=== PATIENT | female | born 1955 | race Caucasian/White ===

== ENCOUNTER → 2018-08-21 12:22 | Outpatient (CLI) | payer OTHER, MEDICAID, SELFPAY ==
--- NOTE | 2018-08-21 | DI.MRI.S_ITS ---
PROCEDURE: MR CERVICAL SPINE WO CON INDICATIONS: CERVICAL SPINE PAIN TECHNIQUE: Noncontrast sagittal T1 spin echo and T2 fast spin echo, sagittal STIR, foraminal oblique sagittal T2 fast spin echo, and axial gradient echo or T2 fast spin echo through the cervical spine. COMPARISON: [facility] [place], CR, XR CERVICAL SPINE WITH OBLIQUES, 07/23/2018, 14:20. FINDINGS: Image quality: Suboptimal due to hardware artifact from interbody cage grafts at C3-C4, C4-C5 with anterior plate and screw retaining hardware. Alignment and Curvature: Straightening of the normal lordotic curvature. Bone Marrow: Marrow demonstrates normal overall signal. Spinal Cord: Visualized spinal cord has normal size and signal. No cerebellar tonsillar herniation. Paraspinous Soft Tissues: No paravertebral masses. Prevertebral soft tissues are normal in thickness. C2-C3: Bilateral uncovertebral arthropathy and posterior intervening disc osteophyte complex, and bilateral facet disease. No central canal narrowing. Mild right foraminal stenosis. No left foraminal stenosis. C3-C4: Mild residual central canal narrowing. Mild right foraminal stenosis. Severe left foraminal stenosis with nerve root compression. C4-C5: Moderate residual central canal narrowing. Mild right foraminal stenosis. Severe left foraminal narrowing with nerve root compression C5-C6: Bilateral uncovertebral arthropathy and posterior intervening disc osteophyte complex, and bilateral facet disease. Mild central canal narrowing. Mild right foraminal stenosis. Severe left foraminal stenosis with nerve root compression C6-C7: Bilateral uncovertebral arthropathy and posterior intervening disc osteophyte complex, and bilateral facet arthropathy. Mild central canal narrowing. Moderate right foraminal stenosis with nerve root compression. Severe left foraminal stenosis with nerve root compression. C7-T1: Bilateral facet arthropathy, left greater than right. Mild left foraminal narrowing otherwise normal appearance. IMPRESSION: Multilevel cervical spondylosis and facet arthropathy with postsurgical changes as above from C3-C5. Numerous bilateral foraminal stenoses as detailed above by spinal level. Straightening of the normal lordotic curvature. Dictated by: Ruperto Rai M.D. on 08/21/2018 at 13:50 Approved by: Ruperto Rai M.D. on 08/21/2018 at 14:00
== END ==
PROVIDERS: PCP Physician Assistant; Visit Provider Physical Medicine & Rehabilitation
DX: M54.2 Cervicalgia (principal); M47.812 Spondylosis without myelopathy or radiculopathy, cervical region; M48.02 Spinal stenosis, cervical region; Z98.1 Arthrodesis status
CPT/HCPCS: 72141

== ENCOUNTER → 2018-12-18 12:41 | Outpatient (CLI) | payer OTHER, MEDICAID, SELFPAY ==
--- NOTE | 2018-12-18 | DI.CT.S_ITS ---
PROCEDURE: CT CERVICAL SPINE WO CON INDICATIONS: SPINAL STENOSIS, CERVICAL REGION TECHNIQUE: Noncontrast 3 mm thick sections acquired from the skull base to the T4 level. Sagittal and coronal reformats were then constructed. For radiation dose reduction, the following was used: automated exposure control, adjustment of mA and/or kV according to patient size. COMPARISON: [facility], MR, MR CERVICAL SPINE WO CON, 08/21/2018, 12:42. [facility] [place], CR, XR CERVICAL SPINE WITH OBLIQUES, 07/23/2018, 14:20. FINDINGS: Image quality: Excellent. Bones: No fractures or dislocations. There is normal alignment of the visualized vertebral bodies. There is straightening of normal cervical spine curvature. Visualized superior ribs are intact. Postsurgical changes compatible with C3-C4 and C4-C5 ACDF noted. Lucency persists in the C3-C4 intervertebral space. Orthopedic hardware is intact. No lucency is identified at the bone-hardware interface. Mild C4-C5 central canal narrowing. Severe C5-C6 and C6-C7 degenerative changes are noted. Mild C2-C3 degenerative disc changes. Mild C2-C3, C3-C4, C4-C5, C5-C6 and C6-C7 facet arthropathy. Severe left C3-C4, C4-C5, C5-C6 and C6-C7 neural foraminal narrowing. There is compression of the exiting left C4, C5, C6 and C7 nerve root secondary to neural foraminal narrowing. Soft tissues: Prevertebral soft tissues are normal in thickness. No paravertebral hematomas. No apical pneumothoraces. IMPRESSION: 1. Status post C3-C4 ACDF. 2. Multilevel degenerative disc disease 3. Multilevel facet arthropathy 4. Severe left C3-C4, C4-C5, C5-C6 and C6-C7 neural foraminal narrowing. 5. Mild C4-C5 central canal narrowing. 6. Compression of the exiting left C4, C5, C6 and C7 nerve roots secondary to neural foraminal narrowing. Dictated by: Sinai Lebron MD, PhD on 12/18/2018 at 14:31 Approved by: Sinai Lebron MD, PhD on 12/18/2018 at 15:09
== END ==
PROVIDERS: PCP Physician Assistant; Referring Provider Orthopaedic Surgery
DX: M48.02 Spinal stenosis, cervical region (principal); M47.812 Spondylosis without myelopathy or radiculopathy, cervical region; Z98.1 Arthrodesis status
CPT/HCPCS: 72125

== ENCOUNTER 2021-03-14 13:00 | Outpatient (RCR) | payer MEDICARE, SELFPAY ==
--- NOTE | 2021-02-21 13:48 | PT.OIE ---
Current Diagnoses Benign paroxysmal vertigo, unspecified ear (02/21/21) Visit Care Team Role Provider Type Adelina Nicole PA-C Primary Care Provider Non-Staff Specialty: Medical Address: [address], [place], [address] Email: Adelina Campbell PA-C Family Provider Non-Staff Specialty: Medical Address: [address] [place] [address], [id number] Email: Sourav Ruby MD Attending Provider Physician Referring Provider Specialty: Ear, Nose, Throat Address: [address] [place] [address], [id number] Email: [email or web address] Physical Therapy Initial Evaluation PT-OP-A Visit Information Start: 02/15/21 16:25 Freq: Status: Active Protocol: Document 02/21/21 12:18 MB (Rec: 02/21/21 12:44 MB [id number]) Out-Patient Physical Therapy Visit Information Visit Information Visit Type Initial Evaluation Visit Note [employer] Medicare Visit Start Time 12:18 Visit Stop Time 13:18 Total Visit Minutes 60 Visit Number 1 Evaluation Information Evaluation Date 02/21/21 PT-OP-B Current Condition Start: 02/15/21 16:25 Freq: Status: Active Protocol: Document 02/21/21 12:18 MB (Rec: 02/21/21 12:44 MB [id number]) Current Condition History of Current Condition Onset Date 4 years ago Current Complaints Dizziness with lying down and rolling over History of Current Condition Pt reports dizziness that started 4 years ago. It started with walking when she was walking up the hill to feed the mules. She would start to list off to the right . She would stop and close her eyes and get her bearings. It would get better. The walking up the hill dizziness is not happening right now. She is getting dizzy when she lies down in the bed. She sometimes feels dizzy when she goes to the right. Pt states that her sister said that it could be MS. She read that MS is prevalant in [place]. Pt has a history of DM and apnea. She is waiting for a replacement part for her CPAP machine. She is sleeping better without her CPAP. Pt had cervical fusion C1-4. Per Dr. Ruby note, she is a candidate for hearing aides. Pt had one fall in the past year when she stepped backwards into a hole and ruptured her achilles tendon. She had been walking a lot for exercise before she ruptured her achilles. She was put in a boot and then had PT in [place] that hurt her other leg . She stopped the therapy. Pt reports: numbness and tingling in her hands from her carpal tunnel and trigger fingers, vision changes when her dizziness happens (she calls this [employer] vision) , hearing change, reflux with eating rice, concussions when she was little, weakness all over intermittently when she is up, sinus/allergy issues, roaring/ringing in the ears intermittently, chiropractor treatment with last visit in December 2020 with adjustment of LB, TMD with pain in both sides and occ popping right side, occ headache. Pt denies: ear pressure, performance of sit-ups, anemia , recent overhead lifting, B12 deficiency, eye pressure changes, neck pain. Prior Treatments and Tests PT at [facility] after achilles rupture and pt reports PT hurt her other ankle and calf and especially when walking with band Future Testing and Treatments Planned Pt saw ENT Treatment Goals Patient/Caregiver Goals To stop the dizziness PT-OP-C Subjective Start: 02/15/21 16:25 Freq: Status: Active Protocol: Document 02/21/21 12:18 MB (Rec: 02/21/21 12:44 MB [id number]) OP-PT Subjective Patient Comments Patient Comments See history of current condition Patient Questionnaires Dizziness Handicap Inventory DHI Score 18 DHI Functional Impairment 1 to 19% Impaired (Score 1-19) PT-OP-D Balance Start: 02/15/21 16:25 Freq: Status: Active Protocol: Document 02/21/21 12:18 MB (Rec: 02/21/21 13:48 MB [id number]) OP-PT Balance Assessment Sitting Balance Static Sitting Balance Ability Fair Dynamic Sitting Balance Ability Fair Standing Balance Static Standing Balance Ability Fair Dynamic Standing Balance Ability Poor Standing Balance Comments Min A for standing balance once up with orthostatic testing and after treating BPPV and pt with unsteadiness. Similarly, pt initially dizzy with sitting up after BPPV treatment and requiring assist for balance. Balance Tests Other Other Balance Tests Performed Pt cannot tolerate formal balance testing today d/t dizziness. Mcguire Fall Scale Copyright Permission PT-OP-G Mobility & Gait Start: 02/15/21 16:25 Freq: Status: Active Protocol: Document 02/21/21 12:18 MB (Rec: 02/21/21 13:48 MB [id number]) OP Gait Assessment Comments Gait Comments Superv for gait today with wide SEAN and short steps. PT-OP-J Posture/Palpation/Skin Start: 02/15/21 16:25 Freq: Status: Active Protocol: Document 02/21/21 12:18 MB (Rec: 02/21/21 13:48 MB [id number]) Posture Evaluation Comments Posture Comments Forward head, rounded shoulders, increased body mass PT-OP-K Range of Motion Start: 02/15/21 16:25 Freq: Status: Active Protocol: Document 02/21/21 12:18 MB (Rec: 02/21/21 13:48 MB [id number]) Cervical Spine Range of Motion Cervical Spine Active Testing Position Sitting Comments Cervical ROM is limited all directions s/p C1-4 fusion and pt tends to move shoulders when looking to the side PT-OP-O Vestibular Start: 02/15/21 16:25 Freq: Status: Active Protocol: Document 02/21/21 12:18 MB (Rec: 02/21/21 13:48 MB [id number]) Vestibular Assessment Positional Testing [place]-Hallpike Positive Right,Upbeating,< 60 Seconds Comments Vestibular Comments Negative orthostatic hypotension with BP and HR in left UE: [id number], 62; standing 150/79, 69; standing 1' 146/72, 68 PT-OP-Q Treatments Start: 02/15/21 16:25 Freq: Status: Active Protocol: Document 02/21/21 12:18 MB (Rec: 02/21/21 13:36 MB [id number]) Self-Care/Home Management Treatment Education Patient Education Fall Risk,Posture,Safety Other Education Provided handout about BPPV, ed in gentle cervical rotation and head nods, increasing non -caffeinated fluid intake, use of towel roll for cervical support when sleeping, benefits of OPPT for balance and vestibular training Canalithic Repositioning BPPV Treatment Other Comments Left [place]-Hallpike negative for dizziness and nystagmus and right Nyla-Hallpike positive for dizziness and nystagmus and pt treated x2 with modified Alicja--second time to ensure clearing and BPPV cleared PT-OP-T Assessment and Plan Start: 02/15/21 16:25 Freq: Status: Active Protocol: Document 02/21/21 12:18 MB (Rec: 02/21/21 13:48 MB [id number]) Physical Therapy Assessment Rehab Potential Rehabilitation Potential Good Evaluation Complexity Number of Personal Factors/Comorbidities 1-2 Number of Body Systems Impaired 1-2 Clinical Presentation at Evaluation Evolving Impairments Impairments Activity Tolerance,Balance, Functional Mobility,Gait, Posture,ROM,Sensation,Soft Tissue Mobility,Vestibular Other Impairments Personal factors include pt states she tends to do too much and does not take much time for self-care. Body systems affected include musculoskeletal, vestibular. Her BP is also high today. Her clinical presentation is evolving. Other Concerns Fall Risk Yes Goals 4 Half-Way Goal (LTG) Pt will perform progressive HEP with I including postural, self-massage, thoracic mobility, VOR and balance exercises to improve balance and safety by 04/09/21. LTG Duration 7 weeks 3 Half-Way Goal (LTG) Pt will gait train at least 1400 feet without AD to improve community ambulation and ability to return to walking for exercise by . LTG Duration 7 weeks 2 Paint Booth Operator Goal (LTG) Pt will perform WNLs on FGA to decrease fall risk by 04/09/21 . LTG Duration 7 weeks 1 Paint Booth Operator Goal (LTG) Pt will report no dizziness with lying in bed and rolling over to improve sleep and safety with bed mobility by . LTG Duration 7 weeks Assessment Summary Assessment Pt is a 65 y/o female presenting with chronic postural changes and cervical limitations s/p cervical fusion, increased body mass and tight thoracic spine and positive today for right posterior canalithiasis BPPV. BPPV was treated and resolved when re-checked. She will benefit from ongoing PT to improve posture, check and treat VOR and to work on balance. She had an achilles rupture last year that also affects her gait and balance and PT will address balance to improve I and to decrease fall risk. High co-pay is a barrier to PT. Physical Therapy Plan Frequency and Duration Frequency of Treatment 1-2x/wk Duration of Treatment 7 weeks Plan of Care Start Date 02/21/21 Plan of Care End Date 04/09/21 Therapeutic Interventions Therapeutic Interventions Balance Training,Canalithic Repositioning,Gait Training, Home Exercise Program,Manual Therapy,Neuromuscular Re- education,Patient/Caregiver Education,Self-Care/Home Management,Soft Tissue Mobilization,Taping, Therapeutic Activities, Therapeutic Exercises, Vestibular Rehabilitation Modalities Cold Pack/Ice Massage,Hot Packs Next Visit Focus/Plan Next Note Type Treatment Note Next Visit Plan Check VOR and perform any other needed vestibular tests, FGA, racquet ball massage
--- NOTE | 2021-02-21 13:49 | PT.OPPOC ---
Physical, Occupational & Speech Therapy At [facility] Current Diagnoses Benign paroxysmal vertigo, unspecified ear (02/21/21) Visit Care Team Role Provider Type Adelina Nicole PA-C Primary Care Provider Non-Staff Specialty: Medical Address: [facility] [address], [place], [address] Email: Adelina Campbell PA-C Family Provider Non-Staff Specialty: Medical Address: [address] [place] [address], [id number] Email: Sourav Ruby MD Attending Provider Physician Referring Provider Specialty: Ear, Nose, Throat Address: [address] [place] [address], [id number] Email: [email or web address] Plan Of Care PT-OP-T Assessment and Plan Start: 02/15/21 16:25 Freq: Status: Active Protocol: Document 02/21/21 12:18 MB (Rec: 02/21/21 13:48 MB [id number]) Physical Therapy Assessment Rehab Potential Rehabilitation Potential Good Evaluation Complexity Number of Personal Factors/Comorbidities 1-2 Number of Body Systems Impaired 1-2 Clinical Presentation at Evaluation Evolving Impairments Impairments Activity Tolerance,Balance, Functional Mobility,Gait, Posture,ROM,Sensation,Soft Tissue Mobility,Vestibular Other Impairments Personal factors include pt states she tends to do too much and does not take much time for self-care. Body systems affected include musculoskeletal, vestibular. Her BP is also high today. Her clinical presentation is evolving. Other Concerns Fall Risk Yes Goals 4 Mcfp Goal (LTG) Pt will perform progressive HEP with I including postural, self-massage, thoracic mobility, VOR and balance exercises to improve balance and safety by 04/09/21. LTG Duration 7 weeks 3 Mcfp Goal (LTG) Pt will gait train at least 1400 feet without AD to improve community ambulation and ability to return to walking for exercise by . LTG Duration 7 weeks 2 Soundscriber Mechanic Goal (LTG) Pt will perform WNLs on FGA to decrease fall risk by 04/09/21 . LTG Duration 7 weeks 1 Soundscriber Mechanic Goal (LTG) Pt will report no dizziness with lying in bed and rolling over to improve sleep and safety with bed mobility by . LTG Duration 7 weeks Assessment Summary Assessment Pt is a 65 y/o female presenting with chronic postural changes and cervical limitations s/p cervical fusion, increased body mass and tight thoracic spine and positive today for right posterior canalithiasis BPPV. BPPV was treated and resolved when re-checked. She will benefit from ongoing PT to improve posture, check and treat VOR and to work on balance. She had an achilles rupture last year that also affects her gait and balance and PT will address balance to improve I and to decrease fall risk. High co-pay is a barrier to PT. Physical Therapy Plan Frequency and Duration Frequency of Treatment 1-2x/wk Duration of Treatment 7 weeks Plan of Care Start Date 02/21/21 Plan of Care End Date 04/09/21 Therapeutic Interventions Therapeutic Interventions Balance Training,Canalithic Repositioning,Gait Training, Home Exercise Program,Manual Therapy,Neuromuscular Re- education,Patient/Caregiver Education,Self-Care/Home Management,Soft Tissue Mobilization,Taping, Therapeutic Activities, Therapeutic Exercises, Vestibular Rehabilitation Modalities Cold Pack/Ice Massage,Hot Packs Next Visit Focus/Plan Next Note Type Treatment Note Next Visit Plan Check VOR and perform any other needed vestibular tests, FGA, racquet ball massage Plan of Care Dates Plan of Care Start Date 02/21/21 Plan of Care End Date 04/09/21 Electronically Signed by: Marti Lopez PT 02/21/21 [id number] Please Sign and Return: I have reviewed this Plan of Care and certify that the skilled therapy services above are required to meet the patient?s needs. Physician Signature Date Printed Name and Credentials Clinical Instructor Signature Printed Name and Credentials
--- NOTE | 2021-02-27 15:08 | PT.OTN ---
Current Diagnoses Benign paroxysmal vertigo, unspecified ear (02/27/21) Physical Therapy Treatment Note PT-OP-A Visit Information Start: 02/15/21 16:25 Freq: Status: Active Protocol: Document 02/27/21 14:35 MB (Rec: 02/27/21 15:07 MB [id number]) Out-Patient Physical Therapy Visit Information Visit Information Visit Type Treatment Note Visit Note AARP Medicare 05/12 before KX Visit Start Time 14:35 Visit Stop Time 15:05 Total Visit Minutes 30 Visit Number 2 Evaluation Information Evaluation Date 02/21/21 Precautions Precautions Fall risk, vertigo PT-OP-B Current Condition Start: 02/15/21 16:25 Freq: Status: Active Protocol: Document 02/21/21 12:18 MB (Rec: 02/21/21 12:44 MB [id number]) Current Condition History of Current Condition Onset Date 4 years ago Current Complaints Dizziness with lying down and rolling over History of Current Condition Pt reports dizziness that started 4 years ago. It started with walking when she was walking up the hill to feed the mules. She would start to list off to the right . She would stop and close her eyes and get her bearings. It would get better. The walking up the hill dizziness is not happening right now. She is getting dizzy when she lies down in the bed. She sometimes feels dizzy when she goes to the right. Pt states that her sister said that it could be MS. She read that MS is prevalant in [place]. Pt has a history of DM and apnea. She is waiting for a replacement part for her CPAP machine. She is sleeping better without her CPAP. Pt had cervical fusion C1-4. Per Dr. Ruby note, she is a candidate for hearing aides. Pt had one fall in the past year when she stepped backwards into a hole and ruptured her achilles tendon. She had been walking a lot for exercise before she ruptured her achilles. She was put in a boot and then had PT in [place] that hurt her other leg . She stopped the therapy. Pt reports: numbness and tingling in her hands from her carpal tunnel and trigger fingers, vision changes when her dizziness happens (she calls this stackable vision) , hearing change, reflux with eating rice, concussions when she was little, weakness all over intermittently when she is up, sinus/allergy issues, roaring/ringing in the ears intermittently, chiropractor treatment with last visit in December 2020 with adjustment of LB, TMD with pain in both sides and occ popping right side, occ headache. Pt denies: ear pressure, performance of sit-ups, anemia , recent overhead lifting, B12 deficiency, eye pressure changes, neck pain. Prior Treatments and Tests PT at [facility] after achilles rupture and pt reports PT hurt her other ankle and calf and especially when walking with band Future Testing and Treatments Planned Pt saw ENT Treatment Goals Patient/Caregiver Goals To stop the dizziness PT-OP-C Subjective Start: 02/15/21 16:25 Freq: Status: Active Protocol: Document 02/27/21 14:35 MB (Rec: 02/27/21 15:07 MB [id number]) OP-PT Subjective Patient Comments Patient Comments Pt states that she felt better after PT last week. That was on Friday. She did get nauseated after treatment. On Friday, she went to get into the shower and became vertiginous and almost fell over. She grabbed the wall to steady herself. She then drove herself to [place] on Friday and she went to put her shoes on and she got very dizzy. She kneeled down and then drove herself home after several hours. Pt reports ringing in both ears last night. PT-OP-D Balance Start: 02/15/21 16:25 Freq: Status: Active Protocol: Document 02/21/21 12:18 MB (Rec: 02/21/21 13:48 MB [id number]) OP-PT Balance Assessment Sitting Balance Static Sitting Balance Ability Fair Dynamic Sitting Balance Ability Fair Standing Balance Static Standing Balance Ability Fair Dynamic Standing Balance Ability Poor Standing Balance Comments Min A for standing balance once up with orthostatic testing and after treating BPPV and pt with unsteadiness. Similarly, pt initially dizzy with sitting up after BPPV treatment and requiring assist for balance. Balance Tests Other Other Balance Tests Performed Pt cannot tolerate formal balance testing today d/t dizziness. Mcguire Fall Scale Copyright Permission PT-OP-G Mobility & Gait Start: 02/15/21 16:25 Freq: Status: Active Protocol: Document 02/21/21 12:18 MB (Rec: 02/21/21 13:48 MB [id number]) OP Gait Assessment Comments Gait Comments Superv for gait today with wide SEAN and short steps. PT-OP-J Posture/Palpation/Skin Start: 02/15/21 16:25 Freq: Status: Active Protocol: Document 02/21/21 12:18 MB (Rec: 02/21/21 13:48 MB [id number]) Posture Evaluation Comments Posture Comments Forward head, rounded shoulders, increased body mass PT-OP-K Range of Motion Start: 02/15/21 16:25 Freq: Status: Active Protocol: Document 02/21/21 12:18 MB (Rec: 02/21/21 13:48 MB [id number]) Cervical Spine Range of Motion Cervical Spine Active Testing Position Sitting Comments Cervical ROM is limited all directions s/p C1-4 fusion and pt tends to move shoulders when looking to the side PT-OP-O Vestibular Start: 02/15/21 16:25 Freq: Status: Active Protocol: Document 02/21/21 12:18 MB (Rec: 02/21/21 13:48 MB [id number]) Vestibular Assessment Positional Testing [place]-Hallpike Positive Right,Upbeating,< 60 Seconds Comments Vestibular Comments Negative orthostatic hypotension with BP and HR in left UE: [id number]/77, 62; standing 150/79, 69; standing 1' 146/72, 68 PT-OP-Q Treatments Start: 02/15/21 16:25 Freq: Status: Active Protocol: Document 02/27/21 14:35 MB (Rec: 02/27/21 15:07 MB [id number]) Self-Care/Home Management Treatment Education Other Education Provided handout about common vestibular function tests that ENTs perform, ed pt on keeping neck loose with horizontal head turns and nodding at home, con't non- caffeinated fluid intake, ed on where PT will go from here, benefits of having someone take her to PT and ENT testing Canalithic Repositioning BPPV Treatment Other Comments Right [place]-Hallpike positive for dizziness and nystagmus that is fleeting and more horizontal in nature. Treated through modified Alicja maneuver. B Roll Test negative for dizziness and nystagmus. Re-checked right [place]-Hallpike and negative and went ahead and treated through maneuver PT-OP-T Assessment and Plan Start: 02/15/21 16:25 Freq: Status: Active Protocol: Document 02/27/21 14:35 MB (Rec: 02/27/21 15:07 MB [id number]) Physical Therapy Assessment Rehab Potential Rehabilitation Potential Good Evaluation Complexity Number of Personal Factors/Comorbidities 1-2 Number of Body Systems Impaired 1-2 Clinical Presentation at Evaluation Evolving Impairments Impairments Activity Tolerance,Balance, Functional Mobility,Gait, Posture,ROM,Sensation,Soft Tissue Mobility,Vestibular Other Impairments Personal factors include pt states she tends to do too much and does not take much time for self-care. Body systems affected include musculoskeletal, vestibular. Her BP is also high today. Her clinical presentation is evolving. Other Concerns Fall Risk Yes Goals 4 Residential Goal (LTG) Pt will perform progressive HEP with I including postural, self-massage, thoracic mobility, VOR and balance exercises to improve balance and safety by 04/09/21. LTG Duration 7 weeks 3 Supervising Film Or Videotape Editor Goal (LTG) Pt will gait train at least 1400 feet without AD to improve community ambulation and ability to return to walking for exercise by . LTG Duration 7 weeks 2 Supervising Film Or Videotape Editor Goal (LTG) Pt will perform WNLs on FGA to decrease fall risk by 04/09/21 . LTG Duration 7 weeks 1 Residential Goal (LTG) Pt will report no dizziness with lying in bed and rolling over to improve sleep and safety with bed mobility by . LTG Duration 7 weeks Assessment Summary Assessment Pt with BPPV again today. Re- treated. Progress vestibular PT when BPPV clear. Pt is unsteady and does reach for hallway after treatment. Physical Therapy Plan Frequency and Duration Frequency of Treatment 1-2x/wk Duration of Treatment 7 weeks Plan of Care Start Date 02/21/21 Plan of Care End Date 04/09/21 Therapeutic Interventions Therapeutic Interventions Balance Training,Canalithic Repositioning,Gait Training, Home Exercise Program,Manual Therapy,Neuromuscular Re- education,Patient/Caregiver Education,Self-Care/Home Management,Soft Tissue Mobilization,Taping, Therapeutic Activities, Therapeutic Exercises, Vestibular Rehabilitation Modalities Cold Pack/Ice Massage,Hot Packs Next Visit Focus/Plan Next Note Type Treatment Note Next Visit Plan Check VOR and perform any other needed vestibular tests, FGA, racquet ball massage
--- NOTE | 2021-03-14 13:41 | PT.OTN ---
Current Diagnoses Benign paroxysmal vertigo, unspecified ear (03/14/21) Physical Therapy Treatment Note PT-OP-A Visit Information Start: 02/15/21 16:25 Freq: Status: Active Protocol: Document 03/14/21 13:03 MB (Rec: 03/14/21 13:41 MB [id number]) Out-Patient Physical Therapy Visit Information Visit Information Visit Type Treatment Note Visit Note AARP Medicare 06/09 before KX Visit Start Time 13:03 Visit Stop Time 13:41 Total Visit Minutes 38 Visit Number 3 Evaluation Information Evaluation Date 02/21/21 Precautions Precautions Fall risk, vertigo PT-OP-B Current Condition Start: 02/15/21 16:25 Freq: Status: Active Protocol: Document 02/21/21 12:18 MB (Rec: 02/21/21 12:44 MB [id number]) Current Condition History of Current Condition Onset Date 4 years ago Current Complaints Dizziness with lying down and rolling over History of Current Condition Pt reports dizziness that started 4 years ago. It started with walking when she was walking up the hill to feed the mules. She would start to list off to the right . She would stop and close her eyes and get her bearings. It would get better. The walking up the hill dizziness is not happening right now. She is getting dizzy when she lies down in the bed. She sometimes feels dizzy when she goes to the right. Pt states that her sister said that it could be MS. She read that MS is prevalant in [place]. Pt has a history of DM and apnea. She is waiting for a replacement part for her CPAP machine. She is sleeping better without her CPAP. Pt had cervical fusion C1-4. Per Dr. Ruby note, she is a candidate for hearing aides. Pt had one fall in the past year when she stepped backwards into a hole and ruptured her achilles tendon. She had been walking a lot for exercise before she ruptured her achilles. She was put in a boot and then had PT in [place] that hurt her other leg . She stopped the therapy. Pt reports: numbness and tingling in her hands from her carpal tunnel and trigger fingers, vision changes when her dizziness happens (she calls this stackable vision) , hearing change, reflux with eating rice, concussions when she was little, weakness all over intermittently when she is up, sinus/allergy issues, roaring/ringing in the ears intermittently, chiropractor treatment with last visit in December 2020 with adjustment of LB, TMD with pain in both sides and occ popping right side, occ headache. Pt denies: ear pressure, performance of sit-ups, anemia , recent overhead lifting, B12 deficiency, eye pressure changes, neck pain. Prior Treatments and Tests PT at [facility] after achilles rupture and pt reports PT hurt her other ankle and calf and especially when walking with band Future Testing and Treatments Planned Pt saw ENT Treatment Goals Patient/Caregiver Goals To stop the dizziness PT-OP-C Subjective Start: 02/15/21 16:25 Freq: Status: Active Protocol: Document 03/14/21 13:03 MB (Rec: 03/14/21 13:41 MB [id number]) OP-PT Subjective Patient Comments Patient Comments Pt states that she doesn't have the dizzies anymore and does have the wobbles, especially when in the shower. She notices it in the shower more. PT-OP-D Balance Start: 02/15/21 16:25 Freq: Status: Active Protocol: Document 02/21/21 12:18 MB (Rec: 02/21/21 13:48 MB [id number]) OP-PT Balance Assessment Sitting Balance Static Sitting Balance Ability Fair Dynamic Sitting Balance Ability Fair Standing Balance Static Standing Balance Ability Fair Dynamic Standing Balance Ability Poor Standing Balance Comments Min A for standing balance once up with orthostatic testing and after treating BPPV and pt with unsteadiness. Similarly, pt initially dizzy with sitting up after BPPV treatment and requiring assist for balance. Balance Tests Other Other Balance Tests Performed Pt cannot tolerate formal balance testing today d/t dizziness. Mcguire Fall Scale Copyright Permission PT-OP-G Mobility & Gait Start: 02/15/21 16:25 Freq: Status: Active Protocol: Document 02/21/21 12:18 MB (Rec: 02/21/21 13:48 MB [id number]) OP Gait Assessment Comments Gait Comments Superv for gait today with wide SEAN and short steps. PT-OP-J Posture/Palpation/Skin Start: 02/15/21 16:25 Freq: Status: Active Protocol: Document 02/21/21 12:18 MB (Rec: 02/21/21 13:48 MB [id number]) Posture Evaluation Comments Posture Comments Forward head, rounded shoulders, increased body mass PT-OP-K Range of Motion Start: 02/15/21 16:25 Freq: Status: Active Protocol: Document 02/21/21 12:18 MB (Rec: 02/21/21 13:48 MB [id number]) Cervical Spine Range of Motion Cervical Spine Active Testing Position Sitting Comments Cervical ROM is limited all directions s/p C1-4 fusion and pt tends to move shoulders when looking to the side PT-OP-O Vestibular Start: 02/15/21 16:25 Freq: Status: Active Protocol: Document 02/21/21 12:18 MB (Rec: 02/21/21 13:48 MB [id number]) Vestibular Assessment Positional Testing [place]-Hallpike Positive Right,Upbeating,< 60 Seconds Comments Vestibular Comments Negative orthostatic hypotension with BP and HR in left UE: [id number]/77, 62; standing 150/79, 69; standing 1' 146/72, 68 PT-OP-Q Treatments Start: 02/15/21 16:25 Freq: Status: Active Protocol: Document 03/14/21 13:03 MB (Rec: 03/14/21 13:41 MB [id number]) Therapeutic Exercises Standing Exercises Racquet ball massage Side bilateral Comments STM between shoulder blades, pulsate into wall, cervical rotation Neuro Re-Education Treatment Vestibular Rehabilitation VOR exercises Comments Performed holding letter a with right hand: nods up and down, side to side, moving card and head stays still up and down and side to side, moving card opposite of hand and then moving card in and out--cues for small head turns and keeping neck loose. Performed all in sitting and then stood up at wall PT-OP-T Assessment and Plan Start: 02/15/21 16:25 Freq: Status: Active Protocol: Document 03/14/21 13:03 MB (Rec: 03/14/21 13:41 MB [id number]) Physical Therapy Assessment Rehab Potential Rehabilitation Potential Good Evaluation Complexity Number of Personal Factors/Comorbidities 1-2 Number of Body Systems Impaired 1-2 Clinical Presentation at Evaluation Evolving Impairments Impairments Activity Tolerance,Balance, Functional Mobility,Gait, Posture,ROM,Sensation,Soft Tissue Mobility,Vestibular Other Impairments Personal factors include pt states she tends to do too much and does not take much time for self-care. Body systems affected include musculoskeletal, vestibular. Her BP is also high today. Her clinical presentation is evolving. Other Concerns Fall Risk Yes Goals 4 Intermediate Goal (LTG) Pt will perform progressive HEP with I including postural, self-massage, thoracic mobility, VOR and balance exercises to improve balance and safety by 04/09/21. LTG Duration 7 weeks 3 As400 Programmer Goal (LTG) Pt will gait train at least 1400 feet without AD to improve community ambulation and ability to return to walking for exercise by . LTG Duration 7 weeks 2 As400 Programmer Goal (LTG) Pt will perform WNLs on FGA to decrease fall risk by 04/09/21 . LTG Duration 7 weeks 1 As400 Programmer Goal (LTG) Pt will report no dizziness with lying in bed and rolling over to improve sleep and safety with bed mobility by . LTG Duration 7 weeks Assessment Summary Assessment Initiated VOR exercises today in sitting and standing. Initiated postural exercises today as well. Con't per plan. Physical Therapy Plan Frequency and Duration Frequency of Treatment 1-2x/wk Duration of Treatment 7 weeks Plan of Care Start Date 02/21/21 Plan of Care End Date 04/09/21 Therapeutic Interventions Therapeutic Interventions Balance Training,Canalithic Repositioning,Gait Training, Home Exercise Program,Manual Therapy,Neuromuscular Re- education,Patient/Caregiver Education,Self-Care/Home Management,Soft Tissue Mobilization,Taping, Therapeutic Activities, Therapeutic Exercises, Vestibular Rehabilitation Modalities Cold Pack/Ice Massage,Hot Packs Next Visit Focus/Plan Next Note Type Treatment Note Next Visit Plan FGA, progress balance exercises
--- NOTE | 2021-04-05 15:39 | PT.OPDS ---
Current Diagnoses Benign paroxysmal vertigo, unspecified ear (03/14/21) Visit Care Team Role Provider Type Adelina Nicole PA-C Primary Care Provider Non-Staff Specialty: Medical Address: [facility] [address], [place], [address] Email: Adelina Campbell PA-C Family Provider Non-Staff Specialty: Medical Address: [address] [place] [address], [id number] Email: Sourav Ruby MD Attending Provider Physician Referring Provider Specialty: Ear, Nose, Throat Address: [address] [place] [address] [place], [address] Email: [email or web address] Visit Number Visit Number 3 Discharge Summary PT-OP-B Current Condition Start: 02/15/21 16:25 Freq: Status: Active Protocol: Document 02/21/21 12:18 MB (Rec: 02/21/21 12:44 MB [id number]) Current Condition History of Current Condition Onset Date 4 years ago Current Complaints Dizziness with lying down and rolling over History of Current Condition Pt reports dizziness that started 4 years ago. It started with walking when she was walking up the hill to feed the mules. She would start to list off to the right . She would stop and close her eyes and get her bearings. It would get better. The walking up the hill dizziness is not happening right now. She is getting dizzy when she lies down in the bed. She sometimes feels dizzy when she goes to the right. Pt states that her sister said that it could be MS. She read that MS is prevalant in [place]. Pt has a history of DM and apnea. She is waiting for a replacement part for her CPAP machine. She is sleeping better without her CPAP. Pt had cervical fusion C1-4. Per Dr. Ruby note, she is a candidate for hearing aides. Pt had one fall in the past year when she stepped backwards into a hole and ruptured her achilles tendon. She had been walking a lot for exercise before she ruptured her achilles. She was put in a boot and then had PT in [place] that hurt her other leg . She stopped the therapy. Pt reports: numbness and tingling in her hands from her carpal tunnel and trigger fingers, vision changes when her dizziness happens (she calls this stackable vision) , hearing change, reflux with eating rice, concussions when she was little, weakness all over intermittently when she is up, sinus/allergy issues, roaring/ringing in the ears intermittently, chiropractor treatment with last visit in December 2020 with adjustment of LB, TMD with pain in both sides and occ popping right side, occ headache. Pt denies: ear pressure, performance of sit-ups, anemia , recent overhead lifting, B12 deficiency, eye pressure changes, neck pain. Prior Treatments and Tests PT at [facility] after achilles rupture and pt reports PT hurt her other ankle and calf and especially when walking with band Future Testing and Treatments Planned Pt saw ENT Treatment Goals Patient/Caregiver Goals To stop the dizziness PT-OP-C Subjective Start: 02/15/21 16:25 Freq: Status: Active Protocol: Document 03/14/21 13:03 MB (Rec: 03/14/21 13:41 MB [id number]) OP-PT Subjective Patient Comments Patient Comments Pt states that she doesn't have the dizzies anymore and does have the wobbles, especially when in the shower. She notices it in the shower more. PT-OP-D Balance Start: 02/15/21 16:25 Freq: Status: Active Protocol: Document 02/21/21 12:18 MB (Rec: 02/21/21 13:48 MB [id number]) OP-PT Balance Assessment Sitting Balance Static Sitting Balance Ability Fair Dynamic Sitting Balance Ability Fair Standing Balance Static Standing Balance Ability Fair Dynamic Standing Balance Ability Poor Standing Balance Comments Min A for standing balance once up with orthostatic testing and after treating BPPV and pt with unsteadiness. Similarly, pt initially dizzy with sitting up after BPPV treatment and requiring assist for balance. Balance Tests Other Other Balance Tests Performed Pt cannot tolerate formal balance testing today d/t dizziness. Mcguire Fall Scale Copyright Permission PT-OP-G Mobility & Gait Start: 02/15/21 16:25 Freq: Status: Active Protocol: Document 02/21/21 12:18 MB (Rec: 02/21/21 13:48 MB [id number]) OP Gait Assessment Comments Gait Comments Superv for gait today with wide SEAN and short steps. PT-OP-J Posture/Palpation/Skin Start: 02/15/21 16:25 Freq: Status: Active Protocol: Document 02/21/21 12:18 MB (Rec: 02/21/21 13:48 MB [id number]) Posture Evaluation Comments Posture Comments Forward head, rounded shoulders, increased body mass PT-OP-K Range of Motion Start: 02/15/21 16:25 Freq: Status: Active Protocol: Document 02/21/21 12:18 MB (Rec: 02/21/21 13:48 MB [id number]) Cervical Spine Range of Motion Cervical Spine Active Testing Position Sitting Comments Cervical ROM is limited all directions s/p C1-4 fusion and pt tends to move shoulders when looking to the side PT-OP-O Vestibular Start: 02/15/21 16:25 Freq: Status: Active Protocol: Document 02/21/21 12:18 MB (Rec: 02/21/21 13:48 MB [id number]) Vestibular Assessment Positional Testing [place]-Hallpike Positive Right,Upbeating,< 60 Seconds Comments Vestibular Comments Negative orthostatic hypotension with BP and HR in left UE: /77, 62; standing 150/79, 69; standing 1' 146/72, 68 PT-OP-T Assessment and Plan Start: 02/15/21 16:25 Freq: Status: Active Protocol: Document 04/05/21 15:38 MB (Rec: 04/05/21 15:39 MB [id number]) Physical Therapy Plan Discharge Physical Therapy Discharge Reasons No Longer Attending PT Discharge Comments Last appointment was cancelled and pt has no more appointments. She was last treated 22 days ago. Will d/c PT.
== END 2021-04-24 08:29 ==
LOC: PHYS 13:00
PROVIDERS: Family Provider Physician Assistant; PCP Physician Assistant Medical; Referring Provider Otolaryngology; Visit Provider Otolaryngology
DX: H81.10 Benign paroxysmal vertigo, unspecified ear (principal)
CPT/HCPCS: 95992; 97110; 97112; 97162; 97535

== ENCOUNTER 2021-06-25 15:41 | Emergency (ER) | payer MEDICARE, SELFPAY ==
[2021-06-25 15:55] VITALS: BP 163/77; PULSE 63; RESP 16; TEMP 36.5; O2SAT 98; BMI 26.6
--- NOTE | 2021-06-25 15:57 | DI.US.S_ITS ---
PROCEDURE: US ABDOMEN LIMITED INDICATIONS: RUQ pain TECHNIQUE: Real-time focused scanning was performed of the abdomen, with image documentation. COMPARISON: None. FINDINGS: Liver is normal in size and demonstrates diffuse increased echotexture. There is a small gallstone. No gallbladder wall thickening or pericholecystic fluid. The patient has pain during ultrasound (08/31). The common bile duct is normal in caliber measuring 4.9 mm. Visualized pancreas is normal. IMPRESSION: 1. Cholelithiasis. No gallbladder wall thickening or pericholecystic fluid collection. There is pseudo graphic Castillo sign. Recommend clinical correlation for early acute cholecystitis. If clinically indicated, a HIDA scan may be helpful. 2. Diffusely increased hepatic echotexture. This finding is most likely secondary to hepatic fatty infiltration although other hepatocellular disease may have a similar appearance. Recommend clinical correlation. Dictated by: Debora Kirkland M.D. on 06/25/2021 at 16:51 Approved by: Debora Kirkland M.D. on 06/25/2021 at 16:53
--- NOTE | 2021-06-25 16:09 | ED.ABDPAIN ---
HPI - Abdominal Pain <FÉLIX Vogel - Last Filed: 06/25/21 20:10> General Chief Complaint: Abdominal Pain Stated Complaint: GALLBLADDET INFECTION Time Seen by Provider: 06/25/21 15:57 History of Present Illness HPI narrative: 66 year old female presents to the emergency department complaining of RUQ pain for the last month or two but endorses nausea, vomiting and diarrhea for 2 days. Patient denies any known relation of RUQ pain with eating, denies recent fever, denies epigastric pain or burning. She denies any blood in her emesis or stool. She states she's had two C-sections in the past but denies any other abdominal surgeries. She states she had a tubal ligation during her last . She states she has had right upper quadrant pain for the last couple months but hadn't thought about it much. She states that she has been eating crackers but has not tolerated much more than that. Last time she had something to eat was at 12:00 o'clock today. She denies any recent fever, shortness of breath, chest pain, back pain, or any other symptom. Related Data Previous Rx's Medication Instructions Recorded tramadol 50 mg tablet 50 mg PO DAILY PRN #10 tab 06/25/21 Review of Systems <FÉLIX Vogel - Last Filed: 06/25/21 20:10> Review of Systems Narrative: General: denies fever, chills Head/Neck: denies headache, neck pain Eyes: denies visual changes, eye pain Cardio: denies chest pain, palpitations Respiratory: denies shortness of breath, cough GI: Endorses mild to moderate right upper quadrant abdominal pain with recent nausea, vomiting, and diarrhea : denies dysuria, hematuria MSK: denies joint pain, muscle weakness Skin: denies rash, itching Neuro: denies numbness, tingling Exam <FÉLIX Vogel - Last Filed: 06/25/21 20:10> Narrative Exam Narrative: Independently reviewed vitals signs and nursing notes. General: Awake, alert, nontoxic, no cardiorespiratory distress Head/Neck: Atraumatic, neck full range of motion, no lymphadenopathy Eyes: EOMI, conjunctiva normal Nose: nares patent, no rhinorrhea Mouth/Throat: moist mucus membranes, posterior pharynx normal, no oral lesions Cardio: Regular rate and rhythm, no peripheral edema Respiratory: respirations unlabored without wheezing, stridor, or rales. No retractions. GI: Abdomen soft, tender to palpation right upper quadrant over gallbladder, no other abdominal tenderness with palpation, no masses, no exquisite tenderness with exam, no CVA tenderness MSK: Moves all extremities, neurovascularly intact Skin: Normal capillary refill, no rash Neuro: Normal speech and cognition, normal gait Initial Vital Signs Initial Vital Signs: Vital Signs Temperature 97.7 F 06/25/21 15:55 Pulse Rate 63 06/25/21 15:55 Respiratory Rate 16 06/25/21 15:55 Blood Pressure 163/77 H 06/25/21 15:55 Pulse Oximetry 98 06/25/21 15:55 <Echo Mistry DO - Last Filed: 06/29/21 23:17> Initial Vital Signs Initial Vital Signs: Vital Signs Temperature 97.7 F 06/25/21 15:55 Pulse Rate 63 06/25/21 15:55 Respiratory Rate 16 06/25/21 15:55 Blood Pressure 163/77 H 06/25/21 15:55 Pulse Oximetry 98 06/25/21 15:55 Course <FÉLIX Vogel - Last Filed: 06/25/21 20:10> Orders Ordered: Discontinued Medications Sodium Chloride (Normal Saline 0.9%) 1,000 mls @ 1,000 mls/hr IV BOLUS ONE Stop: 06/25/21 17:09 Last Admin: 06/25/21 17:18 Dose: Not Given Documented by: SHAZIA Ketorolac Tromethamine (Ketorolac 30 Mg/Ml Vial) 15 mg IV NOW ONE Stop: 06/25/21 17:08 Last Admin: 06/25/21 17:36 Dose: Not Given Documented by: SHAZIA Ketorolac Tromethamine (Ketorolac 30 Mg/Ml Vial) 15 mg IM NOW ONE Stop: 06/25/21 17:24 Last Admin: 06/25/21 17:25 Dose: 15 mg Documented by: SHAZIA Vital Signs Vital signs: Vital Signs - 8 hr 06/25/21 15:55 06/25/21 17:47 Temperature 97.7 F 98.2 F Pulse Rate 63 60 Respiratory Rate 16 18 Blood Pressure 163/77 H 165/72 H Pulse Oximetry 98 98 <Echo Mistry DO - Last Filed: 06/29/21 23:17> Orders Ordered: Discontinued Medications Sodium Chloride (Normal Saline 0.9%) 1,000 mls @ 1,000 mls/hr IV BOLUS ONE Stop: 06/25/21 17:09 Last Admin: 06/25/21 17:18 Dose: Not Given Documented by: SHAZIA Ketorolac Tromethamine (Ketorolac 30 Mg/Ml Vial) 15 mg IV NOW ONE Stop: 06/25/21 17:08 Last Admin: 06/25/21 17:36 Dose: Not Given Documented by: SHAZIA Ketorolac Tromethamine (Ketorolac 30 Mg/Ml Vial) 15 mg IM NOW ONE Stop: 06/25/21 17:24 Last Admin: 06/25/21 17:25 Dose: 15 mg Documented by: SHAZIA Vital Signs Vital signs: Vital Signs - 8 hr 06/25/21 15:55 06/25/21 17:47 Temperature 97.7 F 98.2 F Pulse Rate 63 60 Respiratory Rate 16 18 Blood Pressure 163/77 H 165/72 H Pulse Oximetry 98 98 MDM - Abdominal Pain <FÉLIX Vogel - Last Filed: 06/25/21 20:10> Lab Data Result diagrams: 06/25/21 16:05 06/25/21 16:34 Labs: Lab Results 06/25/21 06/25/21 06/25/21 Range/Units 16:05 16:34 16:34 WBC 7.5 (4.5-11.0) X10^3/uL RBC 4.04 (4.0-5.2) X10^6/uL Hgb 13.1 (12.0-16.0) g/dL Hct 37.3 (36-46) % MCV 92.3 (80-100) fL MCH 32.4 (26-34) PG MCHC 35.1 (30-36) % RDW 12.9 (11.6-14.8) % Plt Count 171 (150-400) X10^3/uL Neut % (Auto) 63.4 (50-75) % Lymph % (Auto) 23.4 L (25-40) % [place] % (Auto) 9.6 (3-14) % Eos % (Auto) 2.7 (2-4) % Baso % (Auto) 0.9 (0-2) % Neut # (Auto) 4800 (0052-7925) /uL Lymph # (Auto) 1800 (6315-9301) /uL [place] # (Auto) 700 (0-900) /uL Eos # (Auto) 200 (0-450) /uL Baso # (Auto) 100 (0-100) /uL PT 10.7 (10.1-12.7) SECONDS INR 1.0 (0.9-1.3) APTT 34 (26.4-36.2) SECONDS Sodium 134 L (137-145) mmol/L Potassium 3.7 (3.4-5.1) mmol/L Chloride 100 (98-107) mmol/L Carbon Dioxide 27 (22-32) mmol/L BUN 14 (7-17) mg/dL Creatinine 0.75 (0.52-1.04) mg/dL Estimated GFR > 60.0 (>60) mL/min BUN/Creatinine Ratio 18.7 (6-22) Glucose 182 H (80-110) mg/dL Lactate (0.7-2.1) mmol/L Calcium 8.9 (8.4-10.2) mg/dL Total Bilirubin 0.6 (0.2-1.3) mg/dL AST 38 H (14-36) IU/L ALT 33 (<35) IU/L Alkaline Phosphatase 55 (38-126) U/L Total Protein 7.7 (6.3-8.2) g/dL Albumin 4.3 (3.5-5.0) g/dL Globulin 3.4 (1.7-4.1) g/dL Albumin/Globulin Ratio 1.3 (1.0-2.8) Lipase 308 H (23-300) U/L 06/25/21 Range/Units 16:34 WBC (4.5-11.0) X10^3/uL RBC (4.0-5.2) X10^6/uL Hgb (12.0-16.0) g/dL Hct (36-46) % MCV (80-100) fL MCH (26-34) PG MCHC (30-36) % RDW (11.6-14.8) % Plt Count (150-400) X10^3/uL Neut % (Auto) (50-75) % Lymph % (Auto) (25-40) % [place] % (Auto) (3-14) % Eos % (Auto) (2-4) % Baso % (Auto) (0-2) % Neut # (Auto) (4756-0574) /uL Lymph # (Auto) (0544-4967) /uL [place] # (Auto) (0-900) /uL Eos # (Auto) (0-450) /uL Baso # (Auto) (0-100) /uL PT (10.1-12.7) SECONDS INR (0.9-1.3) APTT (26.4-36.2) SECONDS Sodium (137-145) mmol/L Potassium (3.4-5.1) mmol/L Chloride (98-107) mmol/L Carbon Dioxide (22-32) mmol/L BUN (7-17) mg/dL Creatinine (0.52-1.04) mg/dL Estimated GFR (>60) mL/min BUN/Creatinine Ratio (6-22) Glucose (80-110) mg/dL Lactate 2.0 (0.7-2.1) mmol/L Calcium (8.4-10.2) mg/dL Total Bilirubin (0.2-1.3) mg/dL AST (14-36) IU/L ALT (<35) IU/L Alkaline Phosphatase (38-126) U/L Total Protein (6.3-8.2) g/dL Albumin (3.5-5.0) g/dL Globulin (1.7-4.1) g/dL Albumin/Globulin Ratio (1.0-2.8) Lipase (23-300) U/L Imaging Data US - abdomen: Radiologist's Impression: PROCEDURE: US ABDOMEN LIMITED ? INDICATIONS:? RUQ pain ? TECHNIQUE:? Real-time focused scanning was performed of the abdomen, with image documentation.? ? COMPARISON:? None. ? FINDINGS:? Liver is normal in size and demonstrates diffuse increased echotexture.? There is a small gallstone.? No gallbladder wall thickening or pericholecystic fluid.? The patient has pain during ultrasound (08/31).? The common bile duct is normal in caliber measuring 4.9 mm.? Visualized pancreas is normal.? ? IMPRESSION:? ? 1. Cholelithiasis.? No gallbladder wall thickening or pericholecystic fluid collection.? There is pseudo graphic Castillo sign.? Recommend clinical correlation for early acute cholecystitis.? If clinically indicated, a HIDA scan may be helpful.? ? 2.? Diffusely increased hepatic echotexture. This finding is most likely secondary to hepatic fatty infiltration although other hepatocellular disease may have a similar appearance. Recommend clinical correlation.? ? ? Dictated by: Debora Kirkland M.D. on 06/25/2021 at 16:51 ? ? Approved by: Debora Kirkland M.D. on 06/25/2021 at 16:53 ? MDM Narrative Medical decision making narrative: This is a 66-year-old female presents to the emergency department with right upper quadrant pain over the last 2 or more months, with nausea and vomiting with diarrhea over the last 2 days. She denies any recent fever, states that she has felt this pain on the right upper quadrant with simple activities, coughing, deep breath, or walking. She states the pain comes and goes. Today ultrasound of her right upper quadrant shows cholelithiasis without gallbladder wall thickening or pericholecystic fluid collection. There is a pseudo graphic Castillo sign. Also noted was diffusely increased hepatic echotexture. Common bile duct is 4.9 mm, 1 small gallstone, pain during her ultrasound was 6/10. Lab work is significant for priors to compare to otherwise unremarkable. Patient does not have any leukocytosis, AST is 38, ALT is 33, no gross electrolyte abnormalities, total bilirubin is 0.6. Patient was given 15 mg of IM ketorolac, states that this was helpful for her pain. IV placement was attempted but failed, she did not receive the 1 L normal saline fluid bolus. Her pain was well controlled, no nausea or vomiting during her emergency department stay. She is given a prescription for Zofran, encouraged to follow-up with Dr. Mares, a referral was placed, patient states that she would like to consider cholecystectomy as an outpatient. Patient was given strict return precautions, given prescription for tramadol for breakthrough pain. Differential includes cholecystitis, pancreatitis, hepatitis, GERD, appendicitis. Patient is appropriate and amenable to discharge home. Vital signs are stable on repeat examination is unremarkable. Patient has been informed of results. Patient has been given strict return to ER precautions for any new or worsening symptoms. Patient understands to follow up closely with outpatient providers as instructed. Patient understands plan and agrees to discharge home. All questions and concerns answered at this time. <Echo Alex Dionisionissa, DO - Last Filed: 06/29/21 23:17> Lab Data Labs: Lab Results 06/25/21 06/25/21 06/25/21 Range/Units 16:05 16:34 16:34 WBC 7.5 (4.5-11.0) X10^3/uL RBC 4.04 (4.0-5.2) X10^6/uL Hgb 13.1 (12.0-16.0) g/dL Hct 37.3 (36-46) % MCV 92.3 (80-100) fL MCH 32.4 (26-34) PG MCHC 35.1 (30-36) % RDW 12.9 (11.6-14.8) % Plt Count 171 (150-400) X10^3/uL Neut % (Auto) 63.4 (50-75) % Lymph % (Auto) 23.4 L (25-40) % [place] % (Auto) 9.6 (3-14) % Eos % (Auto) 2.7 (2-4) % Baso % (Auto) 0.9 (0-2) % Neut # (Auto) 4800 (1772-0881) /uL Lymph # (Auto) 1800 (2466-2265) /uL [place] # (Auto) 700 (0-900) /uL Eos # (Auto) 200 (0-450) /uL Baso # (Auto) 100 (0-100) /uL PT 10.7 (10.1-12.7) SECONDS INR 1.0 (0.9-1.3) APTT 34 (26.4-36.2) SECONDS Sodium 134 L (137-145) mmol/L Potassium 3.7 (3.4-5.1) mmol/L Chloride 100 (98-107) mmol/L Carbon Dioxide 27 (22-32) mmol/L BUN 14 (7-17) mg/dL Creatinine 0.75 (0.52-1.04) mg/dL Estimated GFR > 60.0 (>60) mL/min BUN/Creatinine Ratio 18.7 (6-22) Glucose 182 H (80-110) mg/dL Lactate (0.7-2.1) mmol/L Calcium 8.9 (8.4-10.2) mg/dL Total Bilirubin 0.6 (0.2-1.3) mg/dL AST 38 H (14-36) IU/L ALT 33 (<35) IU/L Alkaline Phosphatase 55 (38-126) U/L Total Protein 7.7 (6.3-8.2) g/dL Albumin 4.3 (3.5-5.0) g/dL Globulin 3.4 (1.7-4.1) g/dL Albumin/Globulin Ratio 1.3 (1.0-2.8) Lipase 308 H (23-300) U/L 06/25/21 Range/Units 16:34 WBC (4.5-11.0) X10^3/uL RBC (4.0-5.2) X10^6/uL Hgb (12.0-16.0) g/dL Hct (36-46) % MCV (80-100) fL MCH (26-34) PG MCHC (30-36) % RDW (11.6-14.8) % Plt Count (150-400) X10^3/uL Neut % (Auto) (50-75) % Lymph % (Auto) (25-40) % [place] % (Auto) (3-14) % Eos % (Auto) (2-4) % Baso % (Auto) (0-2) % Neut # (Auto) (1195-3311) /uL Lymph # (Auto) (1568-3580) /uL [place] # (Auto) (0-900) /uL Eos # (Auto) (0-450) /uL Baso # (Auto) (0-100) /uL PT (10.1-12.7) SECONDS INR (0.9-1.3) APTT (26.4-36.2) SECONDS Sodium (137-145) mmol/L Potassium (3.4-5.1) mmol/L Chloride (98-107) mmol/L Carbon Dioxide (22-32) mmol/L BUN (7-17) mg/dL Creatinine (0.52-1.04) mg/dL Estimated GFR (>60) mL/min BUN/Creatinine Ratio (6-22) Glucose (80-110) mg/dL Lactate 2.0 (0.7-2.1) mmol/L Calcium (8.4-10.2) mg/dL Total Bilirubin (0.2-1.3) mg/dL AST (14-36) IU/L ALT (<35) IU/L Alkaline Phosphatase (38-126) U/L Total Protein (6.3-8.2) g/dL Albumin (3.5-5.0) g/dL Globulin (1.7-4.1) g/dL Albumin/Globulin Ratio (1.0-2.8) Lipase (23-300) U/L Discharge Plan Departure Patient Disposition: Home Clinical Impression: Cholelithiasis Qualifiers: Cholelithiasis location: gallbladder Cholecystitis presence: without cholecystitis Biliary obstruction: without biliary obstruction Qualified Code(s): K80.20 - Calculus of gallbladder without cholecystitis without obstruction Instructions: Gallstones, Cholecystectomy -- Open Surgery, Cholecystectomy -- Laparoscopic Surgery Activity Restrictions/Additional Instructions: *You have been diagnosed with gallstones in your gallbladder without signs of infection or inflammation of the gallbladder wall. Please follow-up with Dr. Mares tomorrow, I have sent a referral to her as well. She is on for General surgery at this time. Please try clear liquids, low-fat, and fresh fruits and vegetables for your diet over the next few days. Please avoid anything fatty as this can cause pain. Take Tylenol, ibuprofen, and or tramadol as needed for pain. Tramadol is like a weak hydrocodone or a super strong Tylenol with extra. It is safe to take with ibuprofen and Tylenol. Please return to the emergency department for if any worsening of your pain, fever, nausea vomiting which is not controlled with Zofran, or any other concerns. Thank you for trusting us with your care, I hope you feel better soon. *What to do: *Please continue to take your regular medications as directed. [ x] New medication prescriptions sent to your pharmacy: [ [facility]] [ ] New medication written as a paper prescription [ ] No new medications given *Please follow up with your primary care provider in 2-3 days, call for an appointment. Let them know you were seen in the Emergency Department and that we asked that you be seen for follow-up. We will electronically transmit a record of today's note if your PCP is in our system *If you do not have a primary care provider please contact [phone] to establish care with one of the [facility] primary care providers. *Return to Emergency Department if you should have any new, worsening or concerning symptoms, such as [fever greater than 101F, chills, worsening pain, persistent vomiting or other bothersome symptoms] Prescriptions: New tramadol 50 mg tablet 50 mg PO DAILY PRN (Reason: pain) Qty: 10 0RF Rx Instructions: For breakthrough pain in addition to Tylenol and or ibuprofen Referrals: Laura Mares MD [Physician] - 3-5 days (for outpatient cholecystectomy) Adelina Nicole PA-C [Primary Care Provider] - <Echo Mistry DO - Last Filed: 06/29/21 23:17> Cosign ED Attending Popature Attestation: I was immediately available in the department for consultation. Documentation has been reviewed.
[2021-06-25 16:11] LABS: Add Manual Diff / Slide Review NO; Basophils Absolute Auto 100 /uL (0-100); Basophils Percent Auto 0.9 % (0-2); Eosinophils Absolute Auto 200 /uL (0-450); Eosinophils Percent Auto 2.7 % (2-4); Hematocrit 37.3 % (36-46); Hemoglobin 13.1 g/dL (12.0-16.0); Lymphocytes Absolute Auto 1800 /uL (1100-4500); Lymphocytes Percent Auto 23.4 % (25-40); Mean Corpuscular HGB Conc 35.1 % (30-36); Mean Corpuscular Hemoglobin 32.4 PG (26-34); Mean Corpuscular Volume 92.3 fL (80-100); Monocytes Absolute Auto 700 /uL (0-900); Monocytes Percent Auto 9.6 % (3-14); Neutrophils Absolute Auto 4800 /uL (1500-7000); Neutrophils Percent Auto 63.4 % (50-75); Platelet Count 171 X10^3/uL (150-400); Red Blood Cell Count 4.04 X10^6/uL (4.0-5.2); Red Cell Distribution Width 12.9 % (11.6-14.8); White Blood Cell Count 7.5 X10^3/uL (4.5-11.0)
[2021-06-25 16:50] LABS: Prothrombin Time 10.7 SECONDS (10.1-12.7)
[2021-06-25 16:52] LABS: PTT Partial Thromboplastin Tim 34 SECONDS (26.4-36.2)
[2021-06-25 16:57] LABS: Alanine Aminotransferase 33 IU/L (<35); Albumin 4.3 g/dL (3.5-5.0); Albumin Globulin Ratio 1.3 (1.0-2.8); Alkaline Phosphatase 55 U/L (38-126); Aspartate Aminotransferase 38 IU/L (14-36); BUN Creatinine Ratio 18.7 (6-22); Bilirubin Total 0.6 mg/dL (0.2-1.3); Blood Urea Nitrogen 14 mg/dL (7-17); Calcium 8.9 mg/dL (8.4-10.2); Carbon Dioxide 27 mmol/L (22-32); Chloride 100 mmol/L (98-107); Estimated Glomerular Filt Rate > 60.0 mL/min (>60); Globulin 3.4 g/dL (1.7-4.1); Glucose 182 mg/dL (80-110); HEMOLYSIS < 15 (0-50); Lipase 308 U/L (23-300); Potassium 3.7 mmol/L (3.4-5.1); Sodium 134 mmol/L (137-145); Total Protein 7.7 g/dL (6.3-8.2)
[2021-06-25] MEDS: KETOROLAC 30 MG/ML VIAL 15 MG IM (17:25)
[2021-06-25 17:47] VITALS: BP 165/72; PULSE 60; RESP 18; TEMP 36.8; O2SAT 98
== END 2021-06-25 17:48 | disposition home or self-care (01) ==
PROVIDERS: Emergency Medicine; Emergency Provider Nurse Practitioner Critical Care Medicine; Family Provider Physician Assistant; PCP Physician Assistant Medical
DX: K80.20 Calculus of gallbladder without cholecystitis without obstruction (principal)
CPT/HCPCS: 36415; 76705; 80053; 83605; 83690; 85025; 85610; 85730; 96372; 99284; J1885

== ENCOUNTER → 2021-09-17 12:50 | Outpatient (CLI) | payer MEDICARE, SELFPAY ==
[2021-09-17 14:08] LABS: COVID19 -Nasal RAPID Negative (Negative)
== END ==
PROVIDERS: Family Provider Physician Assistant; PCP Physician Assistant Medical; Visit Provider Surgery
DX: Z01.812 Encounter for preprocedural laboratory examination (principal); Z20.822 Contact with and (suspected) exposure to COVID-19
CPT/HCPCS: 87635; C9803

== ENCOUNTER 2021-09-18 12:25 | Day surgery (SDC) | payer MEDICARE, SELFPAY ==
[2021-08-01 12:40] VITALS: BMI 26.4
[2021-09-18] VITALS (8 sets, daily range): BP systolic 107–137; BP diastolic 43–57; PULSE 68–95; RESP 12–16; TEMP 36.2–36.5; O2SAT 92–98; BMI 26.4
--- NOTE | 2021-09-18 | PATH_ITS ---
[facility] Accession Number: [id number] . 01 Material submitted: . gallbladder - GALLBLADDER . 01 Diagnosis: Gallbladder, Cholecystectomy: Chronic cholecystitis. MRV 09/21/2021 1339 Local . 01 Electronically signed: . Echo Mueller MD, Pathologist NPI- [id number] . 01 Gross description: . Received in a container of formalin, labeled gallbladder, is a 6.0 x 3.5 x 1.5 cm gallbladder and cystic duct. The serosa is green-yellow, smooth, and glistening. The cystic duct margin is unremarkable and inked blue. The cystic duct is patent. The lumen of the gallbladder contains a scant amount of bile, which is filtered, and no calculi are identified. The gallbladder mucosa is dark green and velvety with diffuse gold stippling consistent with cholesterolosis. There are zapata, rubbery cut surfaces with the wall thickness averaging 0.2 cm. Towards the fundus of the gallbladder on the liver bed is an attached 0.5 cm portion of apparent liver parenchyma. No masses are appreciated. Oil Winterizer sections are submitted in cassette A1. ([id number]) /[facility] 09/20/2021 0250 Local . 01 Pathologist provided ICD-10: K80.20, K81.1 . 01 CPT . 838998 Specimen Comment: A courtesy copy of this report has been sent to [phone] Performed at: 01 [facility] [address] [place] [address] [id number] MD Eric Tolliver MD Phone: [phone]
[2021-09-18] MEDS: LACTATED RINGERS 1,000 ML 42 ML IV (13:10)
--- NOTE | 2021-09-18 14:15 | P.HP_ITS ---
History of Present Illness History of Present Illness Date Patient Seen: 09/18/21 Time Patient Seen: 14:15 Chief complaint: SDC Narrative: 66-year-old woman with gallstones. See office note for details. Patient History Medical History (Updated 07/12/21 @ 12:42 by Awilda Brown RN) Carpal tunnel syndrome Depression Diabetes Hyperlipemia Surgical History (Updated 08/01/21 @ 12:44 by Emelyn Wang RN) History of section History of surgery on wrist Family & Social History Social History: household members none Tobacco & Substance use: Smoking Status Never smoker alcohol intake never Substance Use Type does not use Meds Home Medications and Allergies Home Medications Medication Instructions Recorded Confirmed Type aspirin 81 mg tablet,delayed 81 mg PO DAILY 07/12/21 09/18/21 History release liraglutide 0.6 mg/0.1 mL (18 mg/3 1.8 mg SUBCUT DAILY 07/12/21 09/18/21 History mL) subcutaneous pen injector ([employer] 2-Lorenzo) metformin 500 mg tablet,extended 500 mg PO DAILY 07/12/21 09/18/21 History release 24 hr Allergies Allergy/AdvReac Type Severity Reaction Status Date / Time glipizide Allergy Mild Verified 09/18/21 13:03 propoxyphene [From Darvon] Allergy Verified 09/18/21 13:03 [id number] Reductase AdvReac Verified 09/18/21 13:03 Inhibitor Exam Vital Signs (past 8 hours): - 09/18/21 12:57 Temperature 97.2 F L Pulse Rate 68 Respiratory Rate 16 Blood Pressure 129/57 L Pulse Oximetry 98 Oxygen Delivery Method Room Air Oxygen Delivery Method Room Air Const General: No acute distress Nutritional Appearance: obese Assessment & Plan Assessment and plan (1) Gallstones: Status: Acute Plan Will proceed with laparoscopic cholecystectomy. Reviewed risks and benefits and she would like to proceed. Time Spent With Patient Critical Care time: I spent a total of [] minutes of critical care time on this patient's care today; this time is exclusive of procedural time.
[2021-09-18] MEDS: CEFAZOLIN 2 GM/20 ML SYRINGE IV (14:33)
[2021-09-18] MEDS: BUPIVACAINE 0.5% (PF) VIAL 20 ML INJ (15:07)
[2021-09-18] MEDS: LIDOCAINE 1% W/EPI 20 ML INJ (15:08)
--- NOTE | 2021-09-18 15:08 | SUR.OPER ---
Supine on padded OR bed, head on pillow, safety belt at thigh, Bilateral arms secured on padded arm board <90 degrees abduction. Legs uncrossed. Padded footboard in place. Tape over blanket to secure lower legs. Gel pad placed under bilateral heels. Patients lower denture in green denture cup with patient ID label and placed in her belongings bag in pre-op.
--- NOTE | 2021-09-18 16:00 | P.OP_ITS ---
Operative Date/Time/Diagnoses Date of procedure: 09/18/21 Time of procedure: 16:01 Pre-op diagnosis: Gallstones Post-op diagnosis: same Procedure & Clinicians Procedure: Laparoscopic cholecystectomy Same procedure as scheduled: Yes Surgeon: Elvis Koroma Anesthesia Type: General Operative Notes Procedure in detail: The patient was given preoperative antibiotic. The patient was brought to the operating room, placed on the table in the supine position. General endo tracheal anesthesia was induced. The abdomen was prepped and draped. A time- out was performed. We made a 1 cm infraumbilical incision. We dissected down to the base of the umbilical stalk using cautery. We grasped the umbilical stalk with a Luis clamp to elevate the abdominal wall. We scored the fascia in the midline with cautery 1 cm. We pierced the peritoneum with a Peon clamp. The Clayton port was placed and the abdomen was insufflated to 15 mmHg. A 5 mm 30 degree laparoscopic was inserted. There was no evidence of any injury from the entry. Next, we placed 5 mm ports in the subxiphoid position and right upper quadrant at the midclavicular line and anterior axillary line. Patient was then positioned in reverse Trendelenburg and the table was tilted to the left. The gallbladder was grasped at the dome and retracted cephalad. The liver was rather stiff and large. We then dissected the cystic structures with a combination of hook cautery and blunt dissection. We obtained a critical view. We placed clips on the cystic duct and artery and divided the cystic duct and artery sharply between the clips. The gallbladder was then dissected off the liver and placed in a specimen retrieval bag. We irrigated the right upper quadrant and all the aspirate returned clear. We then removed the 5 mm ports under direct vision we removed the Clayton port. We then injected some local into the fascia and closed the fascia with 3 interrupted 0 Vicryl sutures. The skin incisions were closed with 4 Monocryl and Steri-Strips were applied. Band- Aids were applied over the Steri-Strips. EBL: 10 mL Specimen: Gallbladder Post-operative Condition: stable Disposition: PACU
[2021-09-18] MEDS: ONDANSETRON 4 MG/2 ML INJ IV (16:12)
[2021-09-18] MEDS: OXYCODONE/ACETAMINOPHEN 5/325 TABLET 1 TAB PO ×2 (16:14→16:53)
== END 2021-09-18 16:58 | disposition home or self-care (01) ==
PROVIDERS: Family Provider Physician Assistant; PCP Physician Assistant Medical; Referring Provider Surgery; Visit Provider Surgery
PROC: 0FT44ZZ Resection of Gallbladder, Percutaneous Endoscopic Approach (ICD-10-PCS; CPT 47562; principal; 2021-09-18 13:45)
DX: K81.1 Chronic cholecystitis (principal); E11.9 Type 2 diabetes mellitus without complications; Z79.84 Long term (current) use of oral hypoglycemic drugs
CPT/HCPCS: 47562; 82962; J0360; J0690; J1885; J2250; J2405; J2704; J3010

== ENCOUNTER → 2022-09-07 11:20 | Outpatient (CLI) | payer OTHER, SELFPAY ==
--- NOTE | 2022-09-07 11:21 | DI.MRI.S_ITS ---
PROCEDURE: MR LUMBAR SPINE WO CON INDICATIONS: Spondylolisthesis, lumbosacral region TECHNIQUE: Noncontrast sagittal T1 spin echo and T2 fast echo, sagittal STIR, and T2 fast spin echo through the lumbar spine. In cases with scoliosis, additional coronal T2 fast spin echo may be performed. COMPARISON: [facility] Outside Film, CT, CT LUMBAR SPINE WITHOUT CONTRAST, 07/17/2022, 11:00. FINDINGS: Image quality: Excellent. Transitional anatomy is noted with sacralization of the L5 vertebra and a rudimentary disc space at L5-S1. The 1st non rib-bearing vertebral body is designated as L1. This is in keeping with the numbering system used on the CT from 07/17/2022. Alignment and Curvature: There is normal bony alignment. Bone Marrow: Marrow is of normal overall signal. No acute vertebral body compression fractures. Spinal Cord: Conus medullaris terminates at the L1 level. Visualized cord demonstrates normal signal and size. Paraspinous Soft Tissues: No paravertebral masses. There is grade 2 fatty infiltration of the paraspinous musculature. T12-L1: No significant spinal canal stenosis or neural foraminal narrowing. L1-L2: Disc desiccation without significant spinal canal stenosis or neural foraminal narrowing. L2-L3: Disc desiccation and mild circumferential disc bulging as well as mild bilateral facet hypertrophy, which result in mild narrowing of the spinal canal and [id number] narrowing of the bilateral neural foramina. L3-L4: Disc desiccation and mild loss of disc space height with moderate bilateral facet hypertrophy and buckling of the ligamentum flavum. Findings result in moderate narrowing of the spinal canal with effacement of the bilateral lateral recesses and severe left and moderate to severe right neural foraminal narrowing. L4-L5: Disc desiccation and mild circumferential disc bulging with moderate to severe bilateral facet hypertrophy, which result in [id number]-[id number] narrowing of the spinal canal and moderate left and moderate to severe right neural foraminal narrowing. L5-S1: Mild bilateral facet hypertrophy. No significant spinal canal stenosis or neural foraminal narrowing. IMPRESSION: 1. Transitional spinal anatomy is noted as described in the body of the report. The lumbosacral transitional element is designated as L5. 2. At L3-4, degenerative changes result in moderate narrowing of the spinal canal as well as severe left neural foraminal narrowing and moderate to severe right neural foraminal narrowing. 3. At L4-5, degenerative changes result in [id number]-bq-[id number] narrowing of the spinal canal, moderate left neural foraminal narrowing, moderate to severe right neural foraminal narrowing. Approved by: Keo Todd M.D. on 09/09/2022 at 9:48
== END ==
PROVIDERS: PCP Physician Assistant Medical; Referring Provider Orthopaedic Surgery Orthopaedic Surgery of the Spine; Visit Provider Orthopaedic Surgery Orthopaedic Surgery of the Spine
DX: M43.17 Spondylolisthesis, lumbosacral region (principal); M47.816 Spondylosis without myelopathy or radiculopathy, lumbar region; M48.061 Spinal stenosis, lumbar region without neurogenic claudication
CPT/HCPCS: 72148

== ENCOUNTER 2023-04-08 10:30 | Outpatient (RCR) | payer OTHER, SELFPAY ==
--- NOTE | 2023-03-06 17:30 | PT.OIE ---
Addendum entered and electronically signed by Pastor Alex Ferrell, PT 03/10/23 17:24: Incorrectly stated pt had prior left Achilles Tendon tear. Pt had previously tore right Achilles Tendon Original Note: Current Diagnoses Benign paroxysmal vertigo, unspecified ear (03/06/23) Unsteadiness on feet (03/06/23) Repeated falls (03/06/23) Dizziness and giddiness (03/06/23) Past Medical History (Last Updated 07/12/21 @ 12:42 by Awilda Brown, MARU) Carpal tunnel syndrome Depression Diabetes Hyperlipemia Past Surgical History (Last Updated 08/01/21 @ 12:44 by Emelyn Wang RN) History of section History of surgery on wrist Visit Care Team Role Provider Type Adelina Nicole PA-C Family Provider Non-Staff Primary Care Provider Specialty: Medical Address: [facility] [address], [place], [address] Email: FÉLIX Monsalve Attending Provider Non-Staff Referring Provider Specialty: Nursing Address: [facility] [address], [place], [address] Email: Physical Therapy Initial Evaluation PT-OP-A Visit Information Start: 03/06/23 17:38 Freq: Status: Active Protocol: Document 03/06/23 16:50 DCW (Rec: 03/06/23 17:53 DCW [id number]) Out-Patient Physical Therapy Visit Information Visit Information Visit Type Initial Evaluation Visit Start Time 16:50 Visit Stop Time 17:30 Total Visit Minutes 40 Visit Number 1 Number of CULINARY DIRECTOR Visits 0 Evaluation Information Evaluation Date 03/06/23 PT-OP-B Current Condition Start: 03/06/23 17:38 Freq: Status: Active Protocol: Document 03/06/23 16:50 DCW (Rec: 03/06/23 17:53 DCW [id number]) Current Condition History of Current Condition Current Complaints Instability, falls, feeling shaky and off-balance History of Current Condition Pt is a 67 year old female complaining of a multi-year history of spontaneous imbalance. Pt was previously treated for BPPV, but notes that her symptoms are entirely different, seem to have nothing to do with positional changes, and largely just feels off-balance and unstable . Additionally notes recent history of sudden onset of full-body tremors, went away after stopping a new medication, but pt now recently re-started this same medication, and has not experienced a return of the tremor. 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 Treatment Goals Patient/Caregiver Goals To feel more stable when up walking around PT-OP-C Subjective Start: 03/06/23 17:38 Freq: Status: Active Protocol: Document 03/06/23 16:50 DCW (Rec: 03/06/23 17:53 DCW [id number]) OP-PT Subjective Patient Comments Patient Comments I went to the ENT, I think two years ago, and they couldn 't really find anything wrong. PT-OP-D Balance Start: 03/06/23 17:38 Freq: Status: Active Protocol: Document 03/06/23 16:50 DCW (Rec: 03/06/23 17:53 DCW [id number]) Balance Tests CTSIB CTSIB Position 1 Mild sway CTSIB Position 2 Mild sway CTSIB Position 3 Hip Strategies CTSIB Position 4 Moderate Sway CTSIB Position 5 Fall Reaction CTSIB Position 6 Fall Reaction Single Limb Standing Single Limb- Right 2.46 Single Limb- Left 3.06 Tandem Tandem Standing R: 6.08, L: 2.79 PT-OP-O Vestibular Start: 03/06/23 17:38 Freq: Status: Active Protocol: Document 03/06/23 16:50 DCW (Rec: 03/06/23 17:53 DCW [id number]) Vestibular Assessment Auditory Tests Hooper Test Lateralizes left Rinne Test Negative Air Conduction Results Equal Visual Testing Smooth Pursuits Horizontal WNL Smooth Pursuits Vertical WNL Saccades Horizontal WNL Saccades Vertical WNL Heave Test Positive Bilateral Thrust Head Positive Bilateral Positional Testing [place]-Hallpike Negative Left,Negative Right Rolling Test Negative Left,Negative Right PT-OP-T Assessment and Plan Start: 03/06/23 17:38 Freq: Status: Active Protocol: Document 03/06/23 16:50 DCW (Rec: 03/07/23 08:46 DCW [id number]) Physical Therapy Assessment Rehab Potential Rehabilitation Potential Good Evaluation Complexity Number of Personal Factors/Comorbidities 1-2 Number of Body Systems Impaired 4 or More Clinical Presentation at Evaluation Unstable Impairments Impairments Balance,Functional Activities, Functional Mobility,Gait, Strength,Vestibular Goals Two Impairment Pt exhibits fall reaction in positions V and of CTSIB Long-Term Goal (LTG) Pt to demonstrate ability to maintain CTSIB positions V in for 30 seconds in order to demonstrate decreased falls risk and improved vestibular function LTG Duration 05/07/23 One Impairment Pt does not have an appropriate home exercise program Short Term Goal (STG) Pt to be independent and compliant with an appropriate HEP STG Duration 04/06/23 Assessment Summary Assessment Pt presents with decreased stability, falls history, and increased reliance on visual input for balance. Vestibular testing largely negative, other than thrust and heave tests showing moderately severe bilateral positivity, which along with poor performance on CTSIB in positions with visual conflict or removal of visual input, suggests Presbystasis, or likely age-related vestibular loss. Pt also has poor performance standing in tandem (3 seconds left, 6 seconds right) and with single leg stance (3 seconds left, 2 seconds right). Does have difficulty with ankle strategies, potentially due to prior history of Achilles Tendon rupture. Pt should benefit from skilled therapy focusing on vestibular rehab, balance training, ankle strengthening, as well as further positional testing as indicated due to prior history of BPPV. Physical Therapy Plan Frequency and Duration Frequency of Treatment 2x/Week Plan of Care Start Date 03/06/23 Plan of Care End Date 05/07/23 Therapeutic Interventions Therapeutic Interventions Balance Training,Gait Training ,Home Exercise Program,Joint Mobilizations,Manual Therapy, Neuromuscular Re-education, Patient/Caregiver Education, Self-Care/Home Management,Soft Tissue Mobilization, Therapeutic Activities, Therapeutic Exercises, Vestibular Rehabilitation Next Visit Focus/Plan Next Note Type Treatment Note Next Visit Plan Balance challenges, vestibular training
--- NOTE | 2023-03-06 17:30 | PT.OPPOC ---
Physical, Occupational & Speech Therapy At [facility] Current Diagnoses Benign paroxysmal vertigo, unspecified ear (03/06/23) Unsteadiness on feet (03/06/23) Repeated falls (03/06/23) Dizziness and giddiness (03/06/23) Visit Care Team Role Provider Type Adelina Nicole PA-C Family Provider Non-Staff Primary Care Provider Specialty: Medical Address: [address] [address], [place], [address] Email: FÉLIX Monsalve Attending Provider Non-Staff Referring Provider Specialty: Nursing Address: [facility] [address], [address], [place], [address] Email: Plan Of Care PT-OP-T Assessment and Plan Start: 03/06/23 17:38 Freq: Status: Active Protocol: Document 03/06/23 16:50 DCW (Rec: 03/07/23 08:46 DCW [id number]) Physical Therapy Assessment Rehab Potential Rehabilitation Potential Good Evaluation Complexity Number of Personal Factors/Comorbidities 1-2 Number of Body Systems Impaired 4 or More Clinical Presentation at Evaluation Unstable Impairments Impairments Balance,Functional Activities, Functional Mobility,Gait, Strength,Vestibular Goals Two Impairment Pt exhibits fall reaction in positions V and of CTSIB Folder Operator Goal (LTG) Pt to demonstrate ability to maintain CTSIB positions V in for 30 seconds in order to demonstrate decreased falls risk and improved vestibular function LTG Duration 05/07/23 One Impairment Pt does not have an appropriate home exercise program Short Term Goal (STG) Pt to be independent and compliant with an appropriate HEP STG Duration 04/06/23 Assessment Summary Assessment Pt presents with decreased stability, falls history, and increased reliance on visual input for balance. Vestibular testing largely negative, other than thrust and heave tests showing moderately severe bilateral positivity, which along with poor performance on CTSIB in positions with visual conflict or removal of visual input, suggests Presbystasis, or likely age-related vestibular loss. Pt also has poor performance standing in tandem (3 seconds left, 6 seconds right) and with single leg stance (3 seconds left, 2 seconds right). Does have difficulty with ankle strategies, potentially due to prior history of Achilles Tendon rupture. Pt should benefit from skilled therapy focusing on vestibular rehab, balance training, ankle strengthening, as well as further positional testing as indicated due to prior history of BPPV. Physical Therapy Plan Frequency and Duration Frequency of Treatment 2x/Week Plan of Care Start Date 03/06/23 Plan of Care End Date 05/07/23 Therapeutic Interventions Therapeutic Interventions Balance Training,Gait Training ,Home Exercise Program,Joint Mobilizations,Manual Therapy, Neuromuscular Re-education, Patient/Caregiver Education, Self-Care/Home Management,Soft Tissue Mobilization, Therapeutic Activities, Therapeutic Exercises, Vestibular Rehabilitation Next Visit Focus/Plan Next Note Type Treatment Note Next Visit Plan Balance challenges, vestibular training Plan of Care Dates Plan of Care Start Date 03/06/23 Plan of Care End Date 05/07/23 Electronically Signed by: Pastor Ferrell, PT 03/07/23 0848 If you are in agreement with this Plan of Care, please return a signed and dated copy. I have reviewed this Plan of Care and certify that the skilled therapy services above are required to meet the patient?s needs. Physician Signature Date Printed Name and Credentials Clinical Instructor Signature Printed Name and Credentials
--- NOTE | 2023-03-10 17:34 | PT.OTN ---
Current Diagnoses Benign paroxysmal vertigo, unspecified ear (03/10/23) Unsteadiness on feet (03/10/23) Repeated falls (03/10/23) Dizziness and giddiness (03/10/23) Physical Therapy Treatment Note PT-OP-A Visit Information Start: 03/06/23 17:38 Freq: Status: Active Protocol: Document 03/10/23 16:50 DCW (Rec: 03/10/23 17:34 DCW [id number]) Out-Patient Physical Therapy Visit Information Visit Information Visit Type Treatment Note Visit Start Time 16:50 Visit Stop Time 17:30 Total Visit Minutes 40 Visit Number 2 Number of CHANNELER Visits 0 Evaluation Information Evaluation Date 03/06/23 PT-OP-B Current Condition Start: 03/06/23 17:38 Freq: Status: Active Protocol: Document 03/06/23 16:50 DCW (Rec: 03/06/23 17:53 DCW [id number]) Current Condition History of Current Condition Current Complaints Instability, falls, feeling shaky and off-balance History of Current Condition Pt is a 67 year old female complaining of a multi-year history of spontaneous imbalance. Pt was previously treated for BPPV, but notes that her symptoms are entirely different, seem to have nothing to do with positional changes, and largely just feels off-balance and unstable . Additionally notes recent history of sudden onset of full-body tremors, went away after stopping a new medication, but pt now recently re-started this same medication, and has not experienced a return of the tremor. 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 Treatment Goals Patient/Caregiver Goals To feel more stable when up walking around PT-OP-C Subjective Start: 03/06/23 17:38 Freq: Status: Active Protocol: Document 03/10/23 16:50 DCW (Rec: 03/10/23 17:34 DCW [id number]) OP-PT Subjective Patient Comments Patient Comments Pt feeling okay today, just a little dizzy. PT-OP-D Balance Start: 03/06/23 17:38 Freq: Status: Active Protocol: Document 03/06/23 16:50 DCW (Rec: 03/06/23 17:53 DCW [id number]) Balance Tests CTSIB CTSIB Position 1 Mild sway CTSIB Position 2 Mild sway CTSIB Position 3 Hip Strategies CTSIB Position 4 Moderate Sway CTSIB Position 5 Fall Reaction CTSIB Position 6 Fall Reaction Single Limb Standing Single Limb- Right 2.46 Single Limb- Left 3.06 Tandem Tandem Standing R: 6.08, L: 2.79 PT-OP-O Vestibular Start: 03/06/23 17:38 Freq: Status: Active Protocol: Document 03/06/23 16:50 DCW (Rec: 03/06/23 17:53 DCW [id number]) Vestibular Assessment Auditory Tests Hooper Test Lateralizes left Rinne Test Negative Air Conduction Results Equal Visual Testing Smooth Pursuits Horizontal WNL Smooth Pursuits Vertical WNL Saccades Horizontal WNL Saccades Vertical WNL Heave Test Positive Bilateral Thrust Head Positive Bilateral Positional Testing [place]-Hallpike Negative Left,Negative Right Rolling Test Negative Left,Negative Right PT-OP-Q Treatments Start: 03/06/23 17:38 Freq: Status: Active Protocol: Document 03/10/23 16:50 DCW (Rec: 03/10/23 17:34 DCW [id number]) Therapeutic Exercises Sitting Exercises Ankle Flexion Sitting Exercise Name 4-way ankle flexion Side right Other Exercises Step-ups Other Exercise Name Step-ups Side bilateral Equipment Used 6 step Neuro Re-Education Treatment Balance Activities Tilt Board Details Tilt Board Comments DF/PF, Lateral Foam Stance Details NBOS X1, EO/EC Surface Blue Foam SLS Details SLS Equipment // bars Tandem Details Tandem Stance Equipment // bars PT-OP-T Assessment and Plan Start: 03/06/23 17:38 Freq: Status: Active Protocol: Document 03/10/23 16:50 DCW (Rec: 03/10/23 17:34 DCW [id number]) Physical Therapy Assessment Impairments Impairments Balance,Functional Activities, Functional Mobility,Gait, Strength,Vestibular Goals Two Impairment Pt exhibits fall reaction in positions V and of CTSIB Alf Goal (LTG) Pt to demonstrate ability to maintain CTSIB positions V in for 30 seconds in order to demonstrate decreased falls risk and improved vestibular function LTG Duration 05/07/23 One Impairment Pt does not have an appropriate home exercise program Short Term Goal (STG) Pt to be independent and compliant with an appropriate HEP STG Duration 04/06/23 Assessment Summary Assessment Pt had some increased vertigo symptoms today with balance challenges, difficulty with activities that required right ankle strategies. Continue to focus on balance and vestibular challenges. Physical Therapy Plan Frequency and Duration Frequency of Treatment 2x/Week Plan of Care Start Date 03/06/23 Plan of Care End Date 05/07/23 Therapeutic Interventions Therapeutic Interventions Balance Training,Gait Training ,Home Exercise Program,Joint Mobilizations,Manual Therapy, Neuromuscular Re-education, Patient/Caregiver Education, Self-Care/Home Management,Soft Tissue Mobilization, Therapeutic Activities, Therapeutic Exercises, Vestibular Rehabilitation Next Visit Focus/Plan Next Note Type Treatment Note Next Visit Plan Balance challenges, vestibular training
--- NOTE | 2023-03-20 17:36 | PT.OTN ---
Current Diagnoses Benign paroxysmal vertigo, unspecified ear (03/20/23) Unsteadiness on feet (03/20/23) Repeated falls (03/20/23) Dizziness and giddiness (03/20/23) Physical Therapy Treatment Note PT-OP-A Visit Information Start: 03/06/23 17:38 Freq: Status: Active Protocol: Document 03/20/23 16:45 DCW (Rec: 03/20/23 17:36 DCW [id number]) Out-Patient Physical Therapy Visit Information Visit Information Visit Type Treatment Note Visit Start Time 16:45 Visit Stop Time 17:30 Total Visit Minutes 45 Visit Number 3 Number of PULPER Visits 0 Evaluation Information Evaluation Date 03/06/23 PT-OP-B Current Condition Start: 03/06/23 17:38 Freq: Status: Active Protocol: Document 03/06/23 16:50 DCW (Rec: 03/06/23 17:53 DCW [id number]) Current Condition History of Current Condition Current Complaints Instability, falls, feeling shaky and off-balance History of Current Condition Pt is a 67 year old female complaining of a multi-year history of spontaneous imbalance. Pt was previously treated for BPPV, but notes that her symptoms are entirely different, seem to have nothing to do with positional changes, and largely just feels off-balance and unstable . Additionally notes recent history of sudden onset of full-body tremors, went away after stopping a new medication, but pt now recently re-started this same medication, and has not experienced a return of the tremor. 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 Treatment Goals Patient/Caregiver Goals To feel more stable when up walking around PT-OP-C Subjective Start: 03/06/23 17:38 Freq: Status: Active Protocol: Document 03/20/23 16:45 DCW (Rec: 03/20/23 17:36 DCW [id number]) OP-PT Subjective Patient Comments Patient Comments Dizziness still present, but feeling better. PT-OP-D Balance Start: 03/06/23 17:38 Freq: Status: Active Protocol: Document 03/06/23 16:50 DCW (Rec: 03/06/23 17:53 DCW [id number]) Balance Tests CTSIB CTSIB Position 1 Mild sway CTSIB Position 2 Mild sway CTSIB Position 3 Hip Strategies CTSIB Position 4 Moderate Sway CTSIB Position 5 Fall Reaction CTSIB Position 6 Fall Reaction Single Limb Standing Single Limb- Right 2.46 Single Limb- Left 3.06 Tandem Tandem Standing R: 6.08, L: 2.79 PT-OP-O Vestibular Start: 03/06/23 17:38 Freq: Status: Active Protocol: Document 03/06/23 16:50 DCW (Rec: 03/06/23 17:53 DCW [id number]) Vestibular Assessment Auditory Tests Hooper Test Lateralizes left Rinne Test Negative Air Conduction Results Equal Visual Testing Smooth Pursuits Horizontal WNL Smooth Pursuits Vertical WNL Saccades Horizontal WNL Saccades Vertical WNL Heave Test Positive Bilateral Thrust Head Positive Bilateral Positional Testing [place]-Hallpike Negative Left,Negative Right Rolling Test Negative Left,Negative Right PT-OP-Q Treatments Start: 03/06/23 17:38 Freq: Status: Active Protocol: Document 03/20/23 16:45 DCW (Rec: 03/20/23 17:36 DCW [id number]) Therapeutic Exercises Sitting Exercises Ankle Flexion Sitting Exercise Name 4-way ankle flexion Side right Other Exercises BOSU Lunge Other Exercise Name BOSU Lunge Side bilateral Equipment Used Blue BOSU Neuro Re-Education Treatment Balance Activities Dynamic Gait Details Hallway walking Comments Head turns (100 bpm) BAPS Details DF/PF, Inv/Ev, CW/CCW Equipment Lv 4 BAPS Hurdles Details Hurdles/Foam Equipment // bars Comments Forward, Tandem, Side-stepping Tilt Board Details Tilt Board Comments DF/PF, Lateral Foam Stance Details NBOS X1, EO/EC Surface Blue Foam SLS Details SLS Equipment // bars Tandem Details Tandem Stance, Tandem Ambulation Equipment // bars PT-OP-T Assessment and Plan Start: 03/06/23 17:38 Freq: Status: Active Protocol: Document 03/20/23 16:45 DCW (Rec: 03/20/23 17:36 DCW [id number]) Physical Therapy Assessment Assessment Summary Assessment Significant difficulty today ambulating with head turns, fairly severe path deviation and complaints of dizziness. Required a rest break afterward to return to baseline. Will likely benefit from VOR/X1/X2 training exercises for HEP, plan to review next visit. Physical Therapy Plan Frequency and Duration Frequency of Treatment 2x/Week Plan of Care Start Date 03/06/23 Plan of Care End Date 05/07/23 Therapeutic Interventions Therapeutic Interventions Balance Training,Gait Training ,Home Exercise Program,Joint Mobilizations,Manual Therapy, Neuromuscular Re-education, Patient/Caregiver Education, Self-Care/Home Management,Soft Tissue Mobilization, Therapeutic Activities, Therapeutic Exercises, Vestibular Rehabilitation Next Visit Focus/Plan Next Note Type Treatment Note Next Visit Plan Balance challenges, vestibular training
--- NOTE | 2023-04-08 11:14 | PT.OTN ---
Current Diagnoses Benign paroxysmal vertigo, unspecified ear (04/08/23) Unsteadiness on feet (04/08/23) Repeated falls (04/08/23) Dizziness and giddiness (04/08/23) Physical Therapy Treatment Note PT-OP-A Visit Information Start: 03/06/23 17:38 Freq: Status: Active Protocol: Document 04/08/23 10:33 MB (Rec: 04/08/23 11:09 MB [id number]) Out-Patient Physical Therapy Visit Information Visit Information Visit Type Treatment Note Visit Start Time 10:33 Visit Stop Time 11:15 Total Visit Minutes 42 Visit Number 4 Number of MONOTYPE MECHANIC Visits 0 Evaluation Information Evaluation Date 03/06/23 PT-OP-B Current Condition Start: 03/06/23 17:38 Freq: Status: Active Protocol: Document 03/06/23 16:50 DCW (Rec: 03/06/23 17:53 DCW [id number]) Current Condition History of Current Condition Current Complaints Instability, falls, feeling shaky and off-balance History of Current Condition Pt is a 67 year old female complaining of a multi-year history of spontaneous imbalance. Pt was previously treated for BPPV, but notes that her symptoms are entirely different, seem to have nothing to do with positional changes, and largely just feels off-balance and unstable . Additionally notes recent history of sudden onset of full-body tremors, went away after stopping a new medication, but pt now recently re-started this same medication, and has not experienced a return of the tremor. 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 Treatment Goals Patient/Caregiver Goals To feel more stable when up walking around PT-OP-C Subjective Start: 03/06/23 17:38 Freq: Status: Active Protocol: Document 04/08/23 10:33 MB (Rec: 04/08/23 11:09 MB [id number]) OP-PT Subjective Patient Comments Patient Comments Pt states that she wants to have her vertigo checked. She would like PT to drop her. PT-OP-D Balance Start: 03/06/23 17:38 Freq: Status: Active Protocol: Document 03/06/23 16:50 DCW (Rec: 03/06/23 17:53 DCW [id number]) Balance Tests CTSIB CTSIB Position 1 Mild sway CTSIB Position 2 Mild sway CTSIB Position 3 Hip Strategies CTSIB Position 4 Moderate Sway CTSIB Position 5 Fall Reaction CTSIB Position 6 Fall Reaction Single Limb Standing Single Limb- Right 2.46 Single Limb- Left 3.06 Tandem Tandem Standing R: 6.08, L: 2.79 PT-OP-O Vestibular Start: 03/06/23 17:38 Freq: Status: Active Protocol: Document 03/06/23 16:50 DCW (Rec: 03/06/23 17:53 DCW [id number]) Vestibular Assessment Auditory Tests Hooepr Test Lateralizes left Rinne Test Negative Air Conduction Results Equal Visual Testing Smooth Pursuits Horizontal WNL Smooth Pursuits Vertical WNL Saccades Horizontal WNL Saccades Vertical WNL Heave Test Positive Bilateral Thrust Head Positive Bilateral Positional Testing [place]-Hallpike Negative Left,Negative Right Rolling Test Negative Left,Negative Right PT-OP-Q Treatments Start: 03/06/23 17:38 Freq: Status: Active Protocol: Document 04/08/23 10:33 MB (Rec: 04/08/23 11:09 MB [id number]) Therapeutic Exercises Sitting Exercises Ankle Flexion Sitting Exercise Name Teal theraband around foot and PF, eversion and inversion Side right Reps/Minutes 15, gave level 3 band to progress Standing Exercises Toes raises Comments Active in standing after PF stretch Calf stretching in standing Comments Knee bent and knee straight, 20-30 sec Therapeutic Activity Therapeutic Activity Orthostatic assessment Comments BP and HR in RUE: supine 151/ 86, 78; standing 1' d/t machine turns off 151/76, 91; standing 2' 145/80, 84; standing 3' 148/89, 85. Neuro Re-Education Treatment Other Activities Nyla-Hallpike testing Comments Pt would like PT to check Nyla- Hallpike and Roll Test and she is negative for all directions. Pt does tend to push back hard with [place]- Hallpike and PT has a hard time positioning head and slowing descent and pt gently bumps back of head on plinth for first Nyla-Hallpike and no pain or dizziness. Pt has a hard time following commands: negative BPPV testing today PT-OP-T Assessment and Plan Start: 03/06/23 17:38 Freq: Status: Active Protocol: Document 04/08/23 10:33 MB (Rec: 04/08/23 11:09 MB [id number]) Physical Therapy Assessment Impairments Impairments Balance,Functional Activities, Functional Mobility,Gait, Strength,Vestibular Goals Two Impairment Pt exhibits fall reaction in positions V and of CTSIB Music Promoter Goal (LTG) Pt to demonstrate ability to maintain CTSIB positions V in for 30 seconds in order to demonstrate decreased falls risk and improved vestibular function LTG Duration 05/07/23 One Impairment Pt does not have an appropriate home exercise program Short Term Goal (STG) Pt to be independent and compliant with an appropriate HEP STG Duration 04/06/23 Assessment Summary Assessment Pt does not report doing any VOR exercises except for head turns with gait. She might benefit from that in future treatments. Pt reports history of cervical surgery and that could cause some cervicogenic dizziness. Physical Therapy Plan Frequency and Duration Frequency of Treatment 2x/Week Plan of Care Start Date 03/06/23 Plan of Care End Date 05/07/23 Therapeutic Interventions Therapeutic Interventions Balance Training,Gait Training ,Home Exercise Program,Joint Mobilizations,Manual Therapy, Neuromuscular Re-education, Patient/Caregiver Education, Self-Care/Home Management,Soft Tissue Mobilization, Therapeutic Activities, Therapeutic Exercises, Vestibular Rehabilitation Next Visit Focus/Plan Next Note Type Treatment Note Next Visit Plan Balance challenges, vestibular training
--- NOTE | 2023-04-21 17:31 | PT.OPDS ---
Current Diagnoses Benign paroxysmal vertigo, unspecified ear (04/08/23) Unsteadiness on feet (04/08/23) Repeated falls (04/08/23) Dizziness and giddiness (04/08/23) Visit Care Team Role Provider Type Adelina Nicole PA-C Family Provider Non-Staff Primary Care Provider Specialty: Medical Address: [address], [place], [address] Email: FÉLIX Monsalve Attending Provider Non-Staff Referring Provider Specialty: Nursing Address: [address], [address], [place], [address] Email: Visit Number Visit Number 4 Discharge Summary PT-OP-B Current Condition Start: 03/06/23 17:38 Freq: Status: Active Protocol: Document 03/06/23 16:50 DCW (Rec: 03/06/23 17:53 DCW [id number]) Current Condition History of Current Condition Current Complaints Instability, falls, feeling shaky and off-balance History of Current Condition Pt is a 67 year old female complaining of a multi-year history of spontaneous imbalance. Pt was previously treated for BPPV, but notes that her symptoms are entirely different, seem to have nothing to do with positional changes, and largely just feels off-balance and unstable . Additionally notes recent history of sudden onset of full-body tremors, went away after stopping a new medication, but pt now recently re-started this same medication, and has not experienced a return of the tremor. 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 Treatment Goals Patient/Caregiver Goals To feel more stable when up walking around PT-OP-C Subjective Start: 03/06/23 17:38 Freq: Status: Active Protocol: Document 04/08/23 10:33 MB (Rec: 04/08/23 11:09 MB [id number]) OP-PT Subjective Patient Comments Patient Comments Pt states that she wants to have her vertigo checked. She would like PT to drop her. PT-OP-D Balance Start: 03/06/23 17:38 Freq: Status: Active Protocol: Document 03/06/23 16:50 DCW (Rec: 03/06/23 17:53 DCW [id number]) Balance Tests CTSIB CTSIB Position 1 Mild sway CTSIB Position 2 Mild sway CTSIB Position 3 Hip Strategies CTSIB Position 4 Moderate Sway CTSIB Position 5 Fall Reaction CTSIB Position 6 Fall Reaction Single Limb Standing Single Limb- Right 2.46 Single Limb- Left 3.06 Tandem Tandem Standing R: 6.08, L: 2.79 PT-OP-O Vestibular Start: 03/06/23 17:38 Freq: Status: Active Protocol: Document 03/06/23 16:50 DCW (Rec: 03/06/23 17:53 DCW [id number]) Vestibular Assessment Auditory Tests Hooper Test Lateralizes left Rinne Test Negative Air Conduction Results Equal Visual Testing Smooth Pursuits Horizontal WNL Smooth Pursuits Vertical WNL Saccades Horizontal WNL Saccades Vertical WNL Heave Test Positive Bilateral Thrust Head Positive Bilateral Positional Testing Pace-Hallpike Negative Left,Negative Right Rolling Test Negative Left,Negative Right PT-OP-T Assessment and Plan Start: 03/06/23 17:38 Freq: Status: Active Protocol: Document 04/21/23 17:30 DCW (Rec: 04/21/23 17:31 DCW [id number]) Physical Therapy Assessment Assessment Summary Assessment Pt phoned clinic to request cancelation of all remaining visits due to concerns regarding her co-pay. Pt to be discharged at this time, will require a new referral in order to return to skilled therapy in the future if needed. Physical Therapy Plan Discharge Physical Therapy Discharge Reasons Patient Request Next Visit Focus/Plan Next Note Type Discharge Summary
== END 2023-04-24 11:08 | disposition home or self-care (01) ==
LOC: PHYS 10:30
PROVIDERS: Family Provider Physician Assistant Medical; PCP Physician Assistant Medical; Referring Provider Nurse Practitioner; Visit Provider Nurse Practitioner
DX: H81.10 Benign paroxysmal vertigo, unspecified ear (principal); R26.81 Unsteadiness on feet; R42 Dizziness and giddiness; R29.6 Repeated falls
CPT/HCPCS: 97110; 97112; 97162; 97530

== ENCOUNTER → 2023-08-26 08:09 | Outpatient (CLI) | payer MEDICARE, SELFPAY ==
--- NOTE | 2023-08-26 08:11 | DI.CT.S_ITS ---
PROCEDURE: CT LUMBAR SPINE WO CON INDICATIONS: Spinal stenosis, lumbar region TECHNIQUE: Noncontrast 3 mm thick sections acquired from the T12 level to the sacrum. Sagittal and coronal reformats were constructed. For radiation dose reduction, the following was used: automated exposure control. COMPARISON: [facility] Outside Film, CT, CT LUMBAR SPINE WITHOUT CONTRAST, 07/17/2022, 11:00. [facility], CR, XR LUMBAR SPINE 2 OR 3 VIEWS, 08/05/2023, 9:43. FINDINGS: Image quality: Excellent. Bones: Transitional lumbosacral anatomy. The transitional segment is labeled L5 for consistency compared to prior exams. There is rudimentary disc space at L5-S1. Trace retrolisthesis L1-2. Trace anterolisthesis L4-5. No acute vertebral body compression fractures. No suspicious lytic or blastic bony lesions. No pars defects. Mild anterior endplate spurs from L2 through L5. T12-L1: Mild disc height loss. L1-L2: Minor circumferential disc bulge. L2-L3: Mild disc height loss and endplate osteophyte. Mild facet arthropathy and mild to moderate central canal narrowing. L3-L4: Mild disc height loss and endplate osteophytosis. Facet arthropathy and ligamentum flavum hypertrophy. Moderate central canal stenosis. Moderate bilateral foraminal narrowing. L4-L5: Posterior disc osteophyte due to trace anterolisthesis. Severe facet arthropathy. Severe central canal stenosis and right foraminal narrowing, mainly due to facet arthropathy. Moderate to severe left foraminal narrowing. L5-S1: Normal. Soft tissues: No retroperitoneal masses or hematomas. Visualized aorta is normal in caliber. IMPRESSION: Facet arthropathy and disc osteophyte at L4-5 cause severe central canal and right foraminal stenosis. Mild to moderate central stenosis and foraminal narrowing at other levels. No significant change compared to prior exams. Dictated by: Dora Rodgers M.D. on 08/26/2023 at 10:17 Approved by: Dora Rodgers M.D. on 08/26/2023 at 10:33
== END ==
PROVIDERS: Family Provider Physician Assistant Medical; PCP Physician Assistant Medical; Referring Provider Orthopaedic Surgery Orthopaedic Surgery of the Spine; Visit Provider Orthopaedic Surgery Orthopaedic Surgery of the Spine
DX: M48.062 Spinal stenosis, lumbar region with neurogenic claudication (principal); M47.816 Spondylosis without myelopathy or radiculopathy, lumbar region
CPT/HCPCS: 72131